=== PATIENT | male | born 1970 | race Caucasian/White ===

== ENCOUNTER → 2020-09-11 14:13 | Outpatient (CLI) | payer OTHER, MEDICAID, SELFPAY ==
[2020-09-11 15:11] LABS: Hemoglobin A1C% w Est Avg Glu 5.6 % (4.0-6.0)
[2020-09-11 15:18] LABS: Alanine Aminotransferase 38 IU/L (<50); Albumin 4.6 g/dL (3.5-5.0); Albumin Globulin Ratio 1.7 (1.0-2.8); Alkaline Phosphatase 67 U/L (38-126); Aspartate Aminotransferase 32 IU/L (17-59); Bilirubin Total 2.1 mg/dL (0.2-1.3); Blood Urea Nitrogen 10 mg/dL (9-20); Calcium 9.6 mg/dL (8.4-10.2); Carbon Dioxide 28 mmol/L (22-32); Chloride 103 mmol/L (98-107); Cholesterol 250 mg/dL (140-199); Estimated Glomerular Filt Rate > 60.0 mL/min (>60); Globulin 2.7 g/dL (1.7-4.1); Glucose 86 mg/dL (70-100); HDL Cholesterol 42 mg/dL (40-60); HEMOLYSIS < 15 (0-50); LDL Cholesterol Calculated 140 mg/dL (<100); Potassium 4.2 mmol/L (3.4-5.1); Sodium 137 mmol/L (137-145); Total Protein 7.3 g/dL (6.3-8.2); Triglycerides 341 mg/dL (35-150); Uric Acid 8.7 mg/dL (3.5-8.5)
[2020-09-11 15:23] LABS: Rheumatoid Factor < 8.6 IU/mL (<12.0)
[2020-09-11 16:01] LABS: Erythrocyte Sedimentation Rate 1 MM/HR (0-15)
== END ==
PROVIDERS: PCP Family Medicine; Referring Provider Family Medicine; Visit Provider Family Medicine
DX: Z00.00 Encounter for general adult medical examination without abnormal findings (principal); M10.9 Gout, unspecified; R79.89 Other specified abnormal findings of blood chemistry
CPT/HCPCS: 36415; 80053; 80061; 83036; 84550; 85651; 86430

== ENCOUNTER 2020-11-08 19:21 | Emergency (ER) | payer OTHER, MEDICAID, SELFPAY ==
[2020-11-08 19:36] VITALS: BP 157/88; PULSE 71; RESP 15; TEMP 36.7; O2SAT 99; BMI 35.6
[2020-11-08 20:10] VITALS: BP 130/80; PULSE 68; TEMP 36.7; O2SAT 98
--- NOTE | 2020-11-08 20:51 | ED_ITS ---
HPI - Extremity Problem General Chief complaint: Extremity Problem,Nontraumatic Stated complaint: new meds, face is red, fatigue Time Seen by Provider: 11/08/20 19:45 Source: patient Mode of arrival: Ambulatory Limitations: no limitations History of Present Illness HPI Narrative: Patient is a 50-year-old male who is here evaluation for multiple symptoms. He states that he you was just recently started on colchicine and indomethacin for gout flare in his left big toe. Several months ago he was started on allopurinol. He states that the indomethacin is causing him to become somewhat lightheaded so he stopped taking it. He states the colchicine is causing diarrhea. He states that the gout flare has not improved. He is also here because of feeling very tired and being red in the face. At the same time that he was started on allopurinol he was also started on lisinopril and tamsulosin. He does take his blood pressure at home. He states that the blood pressure cuff that he is he is in rates his systolic blood pressure in the high 130s and is reading it as ?high? Related Data Home Medications Medication Instructions Recorded Confirmed Lactobacillus rhamnosus GG PO 09/11/20 10/09/20 cholecalciferol (vitamin D3) PO 09/11/20 10/09/20 cranberry fruit concentrate PO 09/11/20 10/09/20 ibuprofen PO 09/11/20 10/09/20 omega-3 fatty acids PO 09/11/20 10/09/20 vitamins A,C,L-itzi-ifdwrn PO 09/11/20 10/09/20 Previous Rx's Medication Instructions Recorded tamsulosin 0.4 mg capsule 0.4 mg PO BEDTIME #30 cap 09/11/20 allopurinol 300 mg tablet 300 mg PO DAILY #90 tab 10/09/20 colchicine 0.6 mg capsule 0.6 mg PO .COMPLEX #30 cap 10/09/20 indomethacin 50 mg capsule 50 mg PO TID #30 cap 10/09/20 lisinopril 10 mg tablet 10 mg PO DAILY #90 tab 10/09/20 3 ml syringe #12 ea 10/13/20 23 gauge 1.5 inch needle #12 ea 10/13/20 testosterone cypionate 200 mg/mL 200 mg IM QWEEK #10 ml 10/16/20 intramuscular oil ibuprofen 600 mg PO TID PRN #90 tab 11/08/20 Allergies Allergy/AdvReac Type Severity Reaction Status Date / Time Penicillins Allergy Intermediate Rash Verified 11/08/20 19:36 Review of Systems Constitutional Constitutional: Reports fatigue, Denies fever(s), Denies headache(s), Reports lethargy and Reports malaise Eyes Eyes: Denies change in vision ENT Ears, Nose, Mouth, and Throat: Denies headache(s) Cardiovascular Cardiovascular: Denies chest pain and Denies dyspnea Respiratory Respiratory: Denies dyspnea Gastrointestinal Gastrointestinal: Reports diarrhea, Denies nausea and Denies vomiting Genitourinary Genitourinary: Denies dysuria Genitourinary: Denies dysuria Musculoskeletal Comments: Left big toe pain Integumentary/Breasts Skin/Breast: Denies lesions and Denies rash Neurologic Neurologic: Denies behavioral changes, Denies confusion and Denies headache(s) Psychiatric Psychiatric: Denies behavioral changes and Denies confusion Endocrine Endocrine: Reports fatigue Hematologic/Lymphatic On Anticoagulants: No Allergic/Immunologic Allergic/Immunologic: Denies urticaria Patient History Medical History Borderline hypertension BPH (benign prostatic hyperplasia) Chicken pox COVID-19 (~2019) [place] syndrome Gout (~2019) Herpes Hyperbilirubinemia Hypertension Low testosterone in male Pneumonia Preventative health care Testicular cancer Surgical History (Updated 10/07/20 @ 22:10 by Albina Ramirez) Anesthesia History of testicular surgery (~2002) Family History Mother Diabetes mellitus Oxygen deficiency History of heart disease Hypertension Hyperlipidemia Mental health problem Social History Smoking Status: Never smoker alcohol intake: current (2-4 beers per night ) substance use type: former substance user (crack cocaine ), marijuana (1-2 puffs, occasional edibles. ) and crack/cocaine (former 05/2020 ) Smoking Status: Never smoker alcohol intake frequency: other Substance Use Type: marijuana Exam Initial Vital Signs Initial Vital Signs: Vital Signs Temperature 98.0 F 11/08/20 19:36 Pulse Rate 71 11/08/20 19:36 Respiratory Rate 15 11/08/20 19:36 Blood Pressure 157/88 H 11/08/20 19:36 Pulse Oximetry 99 11/08/20 19:36 Const General: cooperative and comfortable Limitations: mental status not altered HENMT Head: normal to inspection and normocephalic Neck Neck: trachea midline Thyroid: thyroid normal Lymphatic: No lymphadenopathy Resp Effort & Inspection: normal respiratory effort Auscultation: clear to auscultation bilaterally Cardio Rate: regular rate Rhythm: regular rhythm GI Inspection: non-distended Palpation: soft Skin Lesions: no lesions Neuro General: patient alert, patient awake and patient oriented x3 Cognition: normal cognition Speech: speech normal Extrem Other: Minimal swelling left big toe Psych Appearance: grossly normal and well kempt Course Vital Signs Vital signs: Vital Signs - 8 hr 11/08/20 19:36 11/08/20 20:10 Temperature 98.0 F 98.1 F Pulse Rate 71 68 Respiratory Rate 15 Blood Pressure 157/88 H 130/80 Pulse Oximetry 99 98 MDM - Extremity (Nontraumatic) MDM Narrative Medical decision making narrative: The gout inflammation in his left big toe appears well. There is only minimal redness and swelling however he is still having quite a bit of discomfort. The diarrhea that he is having is most likely the colchicine. I did discuss this with him and also informed him that it may take longer than just 24 hours for his pain to be improved with the colchicine. He also has multiple other vague complaints. I suspect that some of his symptoms are related to his body adjusting to a new lower blood pressures since he was just recently started on blood pressure medications. Low suspicion for CVA. Low suspicion for TIA. He does have somewhat of a red face but does not have any signs of lymphadenopathy in his neck or other signs of venous congestion. Feel we can hold on radiologic studies for now. Tried to provide reassurance to the patient and his . He has had a alcohol history but states that he has not drank in 5 days. He has no signs of withdrawal. Will have the patient continue his medications. We did discuss how he should be taking his blood pressure at home. Will have him follow-up with his primary doctor. He is given return precautions. He expressed understanding and agreement Discharge Plan Departure Patient Disposition: Home Clinical Impression: Gout, Hypertension Instructions: Essential Hypertension, DI for Gout Activity Restrictions/Additional Instructions: I recommend that you continue all of your medications as directed. Take her blood pressure at home like we discussed. Keep all of your scheduled medical appointments. Return to the emergency department for any new or worsening symptoms Prescriptions: New ibuprofen 600 mg tablet 600 mg PO TID PRN (Reason: pain) Qty: 90 RF: 0 No Action (DME) 3 ml syringe See Rx Instructions .Route .MEDSUPPLY Qty: 12 RF: 0 (DME) 23 gauge 1.5 inch needle See Rx Instructions .Route .MEDSUPPLY Qty: 12 RF: 0 testosterone cypionate [Depo-Testosterone] 200 mg/mL oil 200 mg IM QWEEK Qty: 10 RF: 0 cholecalciferol (vitamin D3) PO RF: 0 ibuprofen PO RF: 0 vitamins A,C,I-vxfs-swpbji PO RF: 0 cranberry fruit concentrate PO RF: 0 omega-3 fatty acids PO RF: 0 Lactobacillus rhamnosus GG PO RF: 0 tamsulosin 0.4 mg capsule 0.4 mg PO BEDTIME Qty: 30 RF: 2 allopurinol 300 mg tablet 300 mg PO DAILY Qty: 90 RF: 1 colchicine 0.6 mg capsule 0.6 mg PO .COMPLEX Qty: 30 RF: 2 indomethacin 50 mg capsule 50 mg PO TID Qty: 30 RF: 2 lisinopril 10 mg tablet 10 mg PO DAILY Qty: 90 RF: 1 Referrals: Devan Crawley, [Primary Care Provider] -
== END 2020-11-08 20:59 | disposition home or self-care (01) ==
PROVIDERS: Emergency Provider Emergency Medicine; PCP Family Medicine
DX: M10.9 Gout, unspecified (principal); I10 Essential (primary) hypertension
CPT/HCPCS: 99281

== ENCOUNTER → 2020-12-21 10:27 | Outpatient (CLI) | payer OTHER, MEDICAID, SELFPAY ==
[2020-12-21 12:22] LABS: Alanine Aminotransferase 31 IU/L (<50); Albumin 4.6 g/dL (3.5-5.0); Albumin Globulin Ratio 1.6 (1.0-2.8); Alkaline Phosphatase 57 U/L (38-126); Aspartate Aminotransferase 29 IU/L (17-59); BUN Creatinine Ratio 10.1 (6-22); Bilirubin Total 1.8 mg/dL (0.2-1.3); Blood Urea Nitrogen 8 mg/dL (9-20); Calcium 9.9 mg/dL (8.4-10.2); Carbon Dioxide 25 mmol/L (22-32); Chloride 103 mmol/L (98-107); Estimated Glomerular Filt Rate > 60.0 mL/min (>60); Globulin 2.8 g/dL (1.7-4.1); Glucose 104 mg/dL (70-100); HEMOLYSIS < 15 (0-50); Potassium 4.1 mmol/L (3.4-5.1); Sodium 137 mmol/L (137-145); Total Protein 7.4 g/dL (6.3-8.2)
[2020-12-30 17:07] LABS: Estrogen 246 pg/mL (40-115)
[2021-01-05 07:48] LABS: Percent Free Testosterone 4.43 % (1.50-4.20); Testosterone Free 49.05 ng/dL (5.00-21.00); Testosterone Total 1107.3 ng/dL (264.0-916.0)
== END ==
PROVIDERS: PCP Family Medicine; Referring Provider Family Medicine; Visit Provider Family Medicine
DX: E80.6 Other disorders of bilirubin metabolism (principal); I10 Essential (primary) hypertension; R79.89 Other specified abnormal findings of blood chemistry
CPT/HCPCS: 36415; 80053; 82248; 82672; 84402; 84403

== ENCOUNTER → 2021-03-02 11:19 | Outpatient (CLI) | payer OTHER, MEDICAID, SELFPAY ==
[2021-03-02 12:19] LABS: Alanine Aminotransferase 56 IU/L (<50); Albumin 4.6 g/dL (3.5-5.0); Albumin Globulin Ratio 1.8 (1.0-2.8); Alkaline Phosphatase 72 U/L (38-126); Aspartate Aminotransferase 43 IU/L (17-59); BUN Creatinine Ratio 15.1 (6-22); Bilirubin Total 1.7 mg/dL (0.2-1.3); Blood Urea Nitrogen 13 mg/dL (9-20); Calcium 9.8 mg/dL (8.4-10.2); Carbon Dioxide 26 mmol/L (22-32); Chloride 102 mmol/L (98-107); Estimated Glomerular Filt Rate > 60.0 mL/min (>60); Globulin 2.6 g/dL (1.7-4.1); Glucose 136 mg/dL (70-100); HEMOLYSIS < 15 (0-50); Potassium 4.5 mmol/L (3.4-5.1); Sodium 138 mmol/L (137-145); Total Protein 7.2 g/dL (6.3-8.2)
[2021-03-10 18:39] LABS: Percent Free Testosterone 5.09 % (1.50-4.20); Testosterone Free 30.41 ng/dL (5.00-21.00); Testosterone Total 597.4 ng/dL (264.0-916.0)
== END ==
PROVIDERS: PCP Family Medicine; Referring Provider Family Medicine; Visit Provider Family Medicine
DX: R79.89 Other specified abnormal findings of blood chemistry (principal)
CPT/HCPCS: 36415; 80053; 84402; 84403

== ENCOUNTER 2021-03-27 09:39 | Day surgery (SDC) | payer OTHER, MEDICAID, SELFPAY ==
[2021-03-23 08:23] VITALS: BMI 34.0
[2021-03-27] VITALS (14 sets, daily range): BP systolic 93–145; BP diastolic 48–97; PULSE 61–81; RESP 11–20; TEMP 36.2–36.7; O2SAT 94–100; BMI 34.0
[2021-03-27 10:07] LABS: COVID19 -Nasal RAPID Negative (Negative)
[2021-03-27] MEDS: ACETAMINOPHEN 325 MG TABLET 975 MG PO (10:35)
[2021-03-27] MEDS: LACTATED RINGERS 1,000 ML 42 ML IV (10:35)
--- NOTE | 2021-03-27 11:13 | PM.PREOP ---
Pre-operative Note Interval Note History & Physical reviewed/Exam performed by Physician: Yes Changes to H&P: No
[2021-03-27] MEDS: CLINDAMYCIN 900 MG/50 ML PIGGYBACK 50 MG IV (11:54)
--- NOTE | 2021-03-27 12:09 | SUR.OPER ---
Supine on padded OR bed, head on pillow, arms secured on padded arm boards at <90 degrees abduction, legs uncrossed, safety belt at thigh, tape over blanket over lower legs.
[2021-03-27] MEDS: BUPIVACAINE 0.25% (PF) VIAL 30 ML INJ (12:17)
[2021-03-27] MEDS: fentaNYL 100 MCG/2 ML INJ IV ×3 (13:46→14:28)
[2021-03-27] MEDS: HYDROMORPHONE 2 MG INJ IV ×7 (13:52→14:27)
[2021-03-27] MEDS: OXYCODONE IR 5 MG TABLET PO ×2 (14:17→14:52)
--- NOTE | 2021-03-27 15:03 | PM.OP.1 ---
Operative Date/Time/Diagnoses Date of procedure: 03/27/21 Time of procedure: 17:59 Pre-op diagnosis: Bilateral inguinal hernia Post-op diagnosis: same Procedure & Clinicians Procedure: Open bilateral inguinal hernia repair with mesh Same procedure as scheduled: Yes Indications: Bilateral inguinal hernia Surgeon: Daren Perez Anesthesia Type: General Operative Notes Findings: Bilateral direct floor defect. No indirect hernia on either side Specimen(s): none sent Estimated Blood Loss (mL): 30 Procedure in detail: The patient was placed supine on the table and bilateral lower extremity compression devices were applied. Anesthesia was induced they were intubated with an LMA and received 2g of Ancef. A time-out was performed. They were prepped and draped in sterile fashion. The right external inguinal ring and the anterior superior iliac crest were identified and marked. 1 finger breath above the inguinal ligament the skin was infiltrated with 0.25% bupivacaine. The skin incision was made here and the subcutaneous tissues were divided with electrocautery exposing the external oblique aponeurosis which was then opened along the direction of its fibers. The tissue planes on the right side were densely adherent from his previous right-sided orchiectomy. There were no cord structures and once the canal was fully exposed there was a moderte size direct floor defect. I opened the floor of the canal were it was particularly attenuated. The hernia was reduced back into the abdomen. A plug of mesh was placed into the floor defect and secured with eithbond suture and the floor was reappoximated. I selected a 7x 15 cm lightweight Pro Loop hernia mesh. The inferior medial aspect of the mesh was anchored to insertion of the rectus muscle to the pubic tubercle such that there was approximately 2 cm of tubercle overlap with Ethibond and then was run continuously along the inferior edge of the mesh to the shelving edge of the inguinal ligament. Interrupted 3 0 Vicryl suture was used to anchor the superior aspect of the mesh to the conjoined tendon in several places. The tails of the mesh were then tucked under the external oblique aponeurosis. The repair was checked for hemostasis. The wound was irrigated with sterile saline. The external oblique aponeurosis was reapproximated in a running fashion using 3 0 Vicryl. The subcutaneous tissues were reapproximated with 3 0 Vicryl skin closed with 4 0 Monocryl followed by the application of Dermabond. The left external inguinal ring and the anterior superior iliac crest were identified and marked. 1 finger breath above the inguinal ligament the skin was infiltrated with 0.25% bupivacaine. The skin incision was made here and the subcutaneous tissues were divided with electrocautery exposing the external oblique aponeurosis which was then opened along the direction of its fibers. Using blunt dissection the internal oblique aporneurosis was from the external oblique upper leaflet to identify the iliohypogastric nerve. Using a kittner the cord was carefully dissected away from the inguinal canal adjacent to the pubic tubercle. The cord including the vas deferens, testicular bloody supply, ilioguinal and genital nerve were encircled with a [place] drain. A direct floor defect was identified similar to the right side. A plug of mesh was placed into the direct defect the floor was reapproximated over it. The cremasteric fibers surrounding the cord were divided using electrocautery adjacent to the internal ring.. The vas deferens and the testicular vessels were preserved and protected. There was no indirect hernia. I selected a 7x 15 cm lightweight Pro Loop hernia mesh. The inferior medial aspect of the mesh was anchored to insertion of the rectus muscle to the pubic tubercle such that there was approximately 2 cm of tubercle overlap with Ethibond and then was run continuously along the inferior edge of the mesh to the shelving edge of the inguinal ligament. Interrupted 3 0 Vicryl suture was used to anchor the superior aspect of the mesh to the conjoined tendon in several places. The tails were then reapproximated loosely around the spermatic cord. The tails of the mesh were then tucked under the external oblique aponeurosis. The repair was checked for hemostasis. The wound was irrigated with sterile saline. The external oblique aponeurosis was reapproximated in a running fashion using 3 0 Vicryl. The subcutaneous tissues were reapproximated with 3 0 Vicryl skin closed with 4 0 Monocryl followed by the application of Dermabond. At the end of the operation I ensured that both testicles were within the scrotum. The sponge instrument count at the end operation was correct. The patient emerged from anesthesia was extubated and transferred to the postoperative care unit in stable condition. A total of 30 ml of of 0.25% bupivicaine was used to infiltrate the skin. At the end of the operation I ensured that the left testicle was within the scrotum. The sponge instrument count at the end operation was correct. The patient emerged from anesthesia was extubated and transferred to the postoperative care unit in stable condition. A total of 30 ml of of 0.25% bupivicaine was used to infiltrate the skin.
--- NOTE | 2021-03-27 15:44 | SUR.PHASEII ---
Pt ready to go, states pain tolerable, no nausea. Assisted to dress, pt left unit in stable condition.
--- NOTE | 2021-03-27 16:38 | SUR.PHASEI ---
1500 Pt transferred to [facility]PD via stretcher. SBAR report at bedside to Kaye CALERO. Pt alert, oriented, tolerating fluids, apple sauce.
== END 2021-03-27 15:35 | disposition home or self-care (01) ==
PROVIDERS: PCP Family Medicine; Referring Provider Surgery; Visit Provider Surgery
PROC: (CPT 49505; principal; 2021-03-27 11:15)
DX: K40.20 Bilateral inguinal hernia, without obstruction or gangrene, not specified as recurrent (principal); I10 Essential (primary) hypertension; E66.9 Obesity, unspecified; E78.5 Hyperlipidemia, unspecified; Z68.38 Body mass index [BMI] 38.0-38.9, adult
CPT/HCPCS: 49505; 82962; 87635; C1781; J1100; J1170; J1885; J2250; J2405; J2704; J3010

== ENCOUNTER 2021-06-09 14:58 | Emergency (ER) | payer OTHER, MEDICAID, SELFPAY ==
[2021-06-09 15:18] VITALS: BP 132/89; PULSE 75; RESP 18; TEMP 36.3; O2SAT 98; BMI 33.3
--- NOTE | 2021-06-09 15:42 | DI.CT.S_ITS ---
PROCEDURE: CT ABDOMEN PELVIS W CON INDICATIONS: Bilateral inguinal pain, s/p hernia repair TECHNIQUE: After the administration of IV contrast, axial sections were acquired from the lung bases to the pubic symphysis. Coronal and sagittal reformats were performed. For radiation dose reduction, the following was used: automated exposure control, adjustment of mA and/or kV according to patient size. COMPARISON: [facility], CT, CT KUB, 07/16/2020, 22:56. FINDINGS: Image quality: Excellent. Lung bases: Unremarkable. Heart: No significant findings. ABDOMEN: Liver: Diffuse fatty liver infiltration is noted. No focal liver lesions are seen. Gallbladder: The gallbladder is largely collapsed at the time of this study. Biliary ducts: Unremarkable. Pancreas: Unremarkable. Spleen: The spleen is mildly enlarged, measuring 13.6 cm AP. Adrenal Glands: Unremarkable. Kidneys and Ureters: There is a 1 mm nonobstructing left-sided kidney stone. The kidneys demonstrate normal size and demonstrate symmetric enhancement. No hydronephrosis is seen. Incidental note is made of a circumaortic left renal vein. Stomach and Bowel: Stomach, small bowel loops, and colon are unremarkable. A normal appendix is incidentally noted. Peritoneum: No abnormal intraperitoneal fluid. No free air. Ventral Wall: No hernia. Abdominal Nodes: No retroperitoneal or mesenteric adenopathy by size criteria. Vessels: Aorta and inferior vena cava are normal in size. PELVIS: Pelvic Organs: Unremarkable. Bladder: Unremarkable. Pelvic Nodes: No enlarged lymph nodes. Miscellaneous: In this patient with this given history, scrutiny is given to the groin on both sides. On the right, there is mild inflammatory change seen within the postoperative region. The right-sided spermatic cord and vessels have been removed. However, no drainable abscess can be seen. On the left, there is a mild fat containing inguinal hernia. Bones: Focal lucency can be seen within the vertebral bodies, most notably within L1 and L2. These are similar to the prior examination. The lesion at L2 demonstrates vertical trabeculations. Mild dextroconvex scoliotic curvature is seen. IMPRESSION: Right orchiectomy, with mild inflammatory change seen within the groin at the postoperative region. No drainable abscess can be seen. Mild fat containing left inguinal hernia. Lucent lesions seen within vertebral bodies. These are stable since the prior and are most likely related to incidental vertebral body hemangiomas. Attention should be paid to these foci on any future follow-up studies. Incidental note is made of: Fatty liver infiltration Mild splenomegaly 1 mm nonobstructing left-sided kidney stone Circumaortic left renal vein Mild dextroconvex scoliotic curvature Normal appendix Dictated by: Shiv Bone M.D. on 06/09/2021 at 15:12 Approved by: Shiv Bone M.D. on 06/09/2021 at 15:17
--- NOTE | 2021-06-09 15:43 | ED_ITS ---
HPI - Abdominal Pain <Shanta Leung DO - Last Filed: 06/13/21 02:17> General Chief Complaint: Abdominal Pain Stated Complaint: hernia pain, recent surgery Time Seen by Provider: 06/09/21 15:21 Source: patient Mode of arrival: Ambulatory Limitations: no limitations History of Present Illness HPI narrative: Patient is a 50-year-old male with history of hypertension, hyperlipidemia status post bilateral inguinal hernia repair 03/27/2021, presenting today with increased left-sided pain. He has had intermittent pain since the surgery. However today after playing with grandkids and picking them up having increased pain. No changes in bowel or bladder habits. No painful or frequent urination. He denies fever or chills. He took ibuprofen earlier today which did seem to help. Related Data Home Medications Medication Instructions Recorded Confirmed cholecalciferol (vitamin D3) 1 tab PO BEDTIME 09/11/20 05/10/21 vitamins A,C,L-xzif-akoalc PO 09/11/20 05/10/21 [PreserVision AREDS] zinc sulfate PO DAILY 04/09/21 05/10/21 Previous Rx's Medication Instructions Recorded colchicine 0.6 mg capsule 0.6 mg PO .COMPLEX #30 cap 10/09/20 tamsulosin 0.4 mg capsule 0.4 mg PO BEDTIME #90 cap 01/11/21 lisinopril 10 mg tablet 10 mg PO DAILY #90 tab 01/25/21 3 ml syringe #12 ea 03/15/21 needle (disp) 23 gauge 23 gauge x #12 ea 03/15/21 1 (Monoject Hypodermic [place]) testosterone cypionate 200 mg/mL 100 mg (0.5 mL) IM QWEEK #10 ml 03/15/21 intramuscular oil (Depo-Testosterone) acetaminophen 325 mg capsule 650 mg PO QID PRN #30 cap 03/27/21 (Tylenol) allopurinol 300 mg tablet 300 mg PO DAILY #90 tab 04/19/21 ibuprofen 800 mg tablet See Rx Instructions .ROUTE 06/04/21 .COMPLEX #90 tab hydrocodone 5 mg-acetaminophen 325 1 tab PO Q4-6H PRN #14 tab 06/12/21 mg tablet Allergies Allergy/AdvReac Type Severity Reaction Status Date / Time Penicillins Allergy Intermediate Rash Verified 06/09/21 15:18 Patient History <Shanta Leung DO - Last Filed: 06/13/21 02:17> Medical History Borderline hypertension BPH (benign prostatic hyperplasia) Chicken pox COVID-19 (~2019) [place] syndrome Gout (~2019) Herpes History of sepsis Hyperbilirubinemia Hypertension Inguinal hernia Low testosterone in male Pneumonia Preventative health care Testicular cancer Surgical History Anesthesia History of orchiectomy (2003) History of testicular surgery (~2002) Family History Mother Diabetes mellitus Oxygen deficiency History of heart disease Hypertension Hyperlipidemia Mental health problem Social History household members: significant other and family Smoking Status: Never smoker alcohol intake: current substance use type: former substance user (crack cocaine ), marijuana (1-2 puffs, occasional edibles. ) and crack/cocaine (former 05/2020 ) Smoking Status: Never smoker alcohol intake frequency: 3 or more drinks per day Substance Use Type: marijuana Exam <Shanta Leung DO - Last Filed: 06/13/21 02:17> Initial Vital Signs Initial Vital Signs: Vital Signs Temperature 97.4 F L 06/09/21 15:18 Pulse Rate 75 06/09/21 15:18 Respiratory Rate 18 06/09/21 15:18 Blood Pressure 132/89 06/09/21 15:18 Pulse Oximetry 98 06/09/21 15:18 GENERAL: Alert well-appearing 50-year-old male and in no acute distress. HEENT: Head atraumatic,EOMI, pupils reactive, face symmetric, moist mucous membr anes CARDIOVASCULAR: Regular rate and rhythm without murmurs, rubs or gallops. RESPIRATORY: Breath sounds equal bilaterally, no wheezes rales or rhonchi. ABDOMEN: Soft, nontender. Normoactive bowel sounds all 4 quadrants. No guarding or rebound. : No CVA tenderness, mild swelling inguinal area significant pain in left inguinal region EXTREMITIES: Normal range of motion, no clubbing or edema. Neurovascularly intact NEUROLOGICAL: Alert and oriented x4.Normal gait and speech. SKIN: Warm, dry, no laceration, no petechiae, no rashes or lesions. <Lexx Tejada MD - Last Filed: 06/09/21 17:04> Initial Vital Signs Initial Vital Signs: Vital Signs Temperature 97.4 F L 06/09/21 15:18 Pulse Rate 75 06/09/21 15:18 Respiratory Rate 18 06/09/21 15:18 Blood Pressure 132/89 06/09/21 15:18 Pulse Oximetry 98 06/09/21 15:18 Course <Shanta Leung DO - Last Filed: 06/13/21 02:17> Orders Ordered: Discontinued Medications Hydrocodone Bitart/Acetaminophen (Hydrocodone/Acet 5/325 Prepack) 1 bottle MISC SEEINSTR ONE Stop: 06/09/21 17:00 Last Admin: 06/09/21 17:09 Dose: 1 bottle Documented by: SEAN Ketorolac Tromethamine (Ketorolac 30 Mg/Ml Vial) 30 mg IV NOW ONE Stop: 06/09/21 15:43 Last Admin: 06/09/21 16:32 Dose: 30 mg Documented by: SEAN Vital Signs Vital signs: Vital Signs - 8 hr 06/09/21 15:18 Temperature 97.4 F L Pulse Rate 75 Respiratory Rate 18 Blood Pressure 132/89 Pulse Oximetry 98 <Lexx Tejada MD - Last Filed: 06/09/21 17:04> Course Course Narrative: 05/2021@16:57. Care was assumed from Dr. Leung at the end of her shift. Her assessment was reviewed. I interviewed and evaluated the patient. Following surgery 2 months ago, he describes having a good 1st month. He is electric pool, he is physically active. He is also quite active with his grandkids. He has been having significant left lower quadrant pain with physical activity over the past month. He has no bulge at the site. He has no nausea, vomiting diarrhea. He has no obvious inflammatory changes. He has mesh in place from the surgery. CT showed a small fat containing left inguinal hernia. He is taking ibuprofen. I will describe limited number of hydrocodone. He is advised to follow-up with Dr. Perez, his surgeon.Amrit VEGA Orders Ordered: Discontinued Medications Hydrocodone Bitart/Acetaminophen (Hydrocodone/Acet 5/325 Prepack) 1 bottle MISC SEEINSTR ONE Stop: 06/09/21 17:00 Last Admin: 06/09/21 17:09 Dose: 1 bottle Documented by: SEAN Ketorolac Tromethamine (Ketorolac 30 Mg/Ml Vial) 30 mg IV NOW ONE Stop: 06/09/21 15:43 Last Admin: 06/09/21 16:32 Dose: 30 mg Documented by: SEAN Vital Signs Vital signs: Vital Signs - 8 hr 06/09/21 15:18 Temperature 97.4 F L Pulse Rate 75 Respiratory Rate 18 Blood Pressure 132/89 Pulse Oximetry 98 MDM - Abdominal Pain <Shanta Leung DO - Last Filed: 06/13/21 02:17> Lab Data Result diagrams: 06/09/21 15:50 06/09/21 15:50 Labs: Lab Results 06/09/21 06/09/21 Range/Units 15:50 15:50 WBC 5.9 (4.5-11.0) X10^3/uL RBC 4.83 (4.5-5.9) X10^6/uL Hgb 15.4 (13.5-17.5) g/dL Hct 43.6 (41-53) % MCV 90.3 (80-100) fL MCH 32.0 (26-34) PG MCHC 35.4 (30-36) % RDW 12.6 (11.6-14.8) % Plt Count 222 (150-400) X10^3/uL Neut % (Auto) 57.1 (50-75) % Lymph % (Auto) 34.6 (25-40) % [place] % (Auto) 6.3 (3-14) % Eos % (Auto) 1.4 L (2-4) % Baso % (Auto) 0.6 (0-2) % Neut # (Auto) 3300 (3059-6387) /uL Lymph # (Auto) 2000 (1997-7684) /uL [place] # (Auto) 400 (0-900) /uL Eos # (Auto) 100 (0-450) /uL Baso # (Auto) 0 (0-100) /uL Sodium 137 (137-145) mmol/L Potassium 4.1 (3.4-5.1) mmol/L Chloride 101 (98-107) mmol/L Carbon Dioxide 25 (22-32) mmol/L BUN 15 (9-20) mg/dL Creatinine 0.84 (0.66-1.25) mg/dL Estimated GFR > 60.0 (>60) mL/min BUN/Creatinine Ratio 17.9 (6-22) Glucose 105 H (70-100) mg/dL Calcium 10.3 H (8.4-10.2) mg/dL Total Bilirubin 1.4 H (0.2-1.3) mg/dL AST 48 (17-59) IU/L ALT 69 H (<50) IU/L Alkaline Phosphatase 73 (38-126) U/L Total Protein 7.6 (6.3-8.2) g/dL Albumin 4.7 (3.5-5.0) g/dL Globulin 2.9 (1.7-4.1) g/dL Albumin/Globulin Ratio 1.6 (1.0-2.8) Lipase 68 (23-300) U/L MDM Narrative Medical decision making narrative: Blood work and CT pending patient signed out to Dr. Tejada for further management. <Lexx Tejada MD - Last Filed: 06/09/21 17:04> Lab Data Labs: Lab Results 06/09/21 06/09/21 Range/Units 15:50 15:50 WBC 5.9 (4.5-11.0) X10^3/uL RBC 4.83 (4.5-5.9) X10^6/uL Hgb 15.4 (13.5-17.5) g/dL Hct 43.6 (41-53) % MCV 90.3 (80-100) fL MCH 32.0 (26-34) PG MCHC 35.4 (30-36) % RDW 12.6 (11.6-14.8) % Plt Count 222 (150-400) X10^3/uL Neut % (Auto) 57.1 (50-75) % Lymph % (Auto) 34.6 (25-40) % [place] % (Auto) 6.3 (3-14) % Eos % (Auto) 1.4 L (2-4) % Baso % (Auto) 0.6 (0-2) % Neut # (Auto) 3300 (7535-3601) /uL Lymph # (Auto) 2000 (3809-6572) /uL [place] # (Auto) 400 (0-900) /uL Eos # (Auto) 100 (0-450) /uL Baso # (Auto) 0 (0-100) /uL Sodium 137 (137-145) mmol/L Potassium 4.1 (3.4-5.1) mmol/L Chloride 101 (98-107) mmol/L Carbon Dioxide 25 (22-32) mmol/L BUN 15 (9-20) mg/dL Creatinine 0.84 (0.66-1.25) mg/dL Estimated GFR > 60.0 (>60) mL/min BUN/Creatinine Ratio 17.9 (6-22) Glucose 105 H (70-100) mg/dL Calcium 10.3 H (8.4-10.2) mg/dL Total Bilirubin 1.4 H (0.2-1.3) mg/dL AST 48 (17-59) IU/L ALT 69 H (<50) IU/L Alkaline Phosphatase 73 (38-126) U/L Total Protein 7.6 (6.3-8.2) g/dL Albumin 4.7 (3.5-5.0) g/dL Globulin 2.9 (1.7-4.1) g/dL Albumin/Globulin Ratio 1.6 (1.0-2.8) Lipase 68 (23-300) U/L Imaging Data CT scan - abdomen/pelvis: Radiologist's Impression: Launch?[address] [address] [address] Scan Report Signed Patient: Alessandro Madrigal MR#: [id number] : 1970 Acct:[id number] Age/Sex: 50 / M Date of Service: 06/09/21 Loc: ED Accession Number: [id number] ?? Procedure: CT abdomen pelvis w con Ordering Provider: Shanta Leung D.O. PROCEDURE:? CT ABDOMEN PELVIS W CON ? INDICATIONS:? Bilateral inguinal pain, s/p hernia repair ? TECHNIQUE:? After the administration of IV contrast, axial sections were acquired from the lung bases to the pubic symphysis.? Coronal and sagittal reformats were performed.? For radiation dose reduction, the following was used:? automated exposure control, adjustment of mA and/or kV according to patient size. ? COMPARISON:? [facility], CT, CT KUB, 07/16/2020, 22:56. ? FINDINGS:? Image quality:? Excellent.? ? Lung bases:? Unremarkable.? ? Heart:? No significant findings. ? ? ABDOMEN: Liver: Diffuse fatty liver infiltration is noted.? No focal liver lesions are seen. Gallbladder:? The gallbladder is largely collapsed at the time of this study.? ? ? Biliary ducts:? Unremarkable.? ? Pancreas:? Unremarkable.? ? Spleen:? The spleen is mildly enlarged, measuring 13.6 cm AP. Adrenal Glands:? Unremarkable.? ? Kidneys and Ureters:? There is a 1 mm nonobstructing left-sided kidney stone.? The kidneys demonstrate normal size and demonstrate symmetric enhancement.? No hydronephrosis is seen. Incidental note is made of a circumaortic left renal vein.? ? Stomach and Bowel:? Stomach, small bowel loops, and colon are unremarkable.? A normal appendix is incidentally noted.? Peritoneum:? No abnormal intraperitoneal fluid.? No free air.? ? Ventral Wall: ? No hernia.? Abdominal Nodes:? No retroperitoneal or mesenteric adenopathy by size criteria.? Vessels:? Aorta and inferior vena cava are normal in size.? ? PELVIS: Pelvic Organs:? Unremarkable.? ? Bladder:? Unremarkable.? ? Pelvic Nodes: No enlarged lymph nodes.? Miscellaneous: In this patient with this given history, scrutiny is given to the groin on both sides.? On the right, there is mild inflammatory change seen within the postoperative region.? The right-sided spermatic cord and vessels have been removed.? However, no drainable abscess can be seen.? On the left, there is a mild fat containing inguinal hernia. ? Bones:? Focal lucency can be seen within the vertebral bodies, most notably wit hin L1 and L2.? These are similar to the prior examination.? The lesion at L2 demonstrates vertical trabeculations.? Mild dextroconvex scoliotic curvature is seen.? ? ? IMPRESSION:? ? Right orchiectomy, with mild inflammatory change seen within the groin at the postoperative region.? No drainable abscess can be seen. ? Mild fat containing left inguinal hernia. ? Lucent lesions seen within vertebral bodies.? These are stable since the prior and are most likely related to incidental vertebral body hemangiomas.? Attention should be paid to these foci on any future follow-up studies. ? ? Incidental note is made of: Fatty liver infiltration Mild splenomegaly 1 mm nonobstructing left-sided kidney stone Circumaortic left renal vein Mild dextroconvex scoliotic curvature Normal appendix ? ? ? Dictated by: Shiv Bone M.D. on 06/09/2021 at 15:12 ? ? Approved by: Shiv Bone M.D. on 06/09/2021 at 15:17?? Discharge Plan Departure Patient Disposition: Home Clinical Impression: Hernia, inguinal, left Instructions: Groin Hernia -- Adult Activity Restrictions/Additional Instructions: Ibuprofen every 6-8 hours as needed for pain. Limit heavy lifting, obviously you are aware. Hydrocodone every 6 hours as the for added pain control. Contact Dr. Perez for repeat evaluation Prescriptions: No Action tamsulosin 0.4 mg capsule 0.4 mg PO BEDTIME Qty: 90 2RF lisinopril 10 mg tablet 10 mg PO DAILY Qty: 90 1RF testosterone cypionate [Depo-Testosterone] 200 mg/mL oil 100 mg IM QWEEK Qty: 10 0RF (DME) needle (disp) 23 gauge [Monoject Hypodermic [place]] 23 gauge x 1 needle See Rx Instructions .ROUTE .MEDSUPPLY Qty: 12 2RF Rx Instructions: Use to inject Testosteron IM once weekly (DME) 3 ml syringe See Rx Instructions .Route .MEDSUPPLY Qty: 12 0RF Rx Instructions: Use to inject testosterone IM weekly. allopurinol 300 mg tablet 300 mg PO DAILY Qty: 90 1RF ibuprofen 800 mg tablet See Rx Instructions .ROUTE .COMPLEX Qty: 90 0RF Dose Instruction: TAKE 1 TABLET BY MOUTH THREE TIMES DAILY NEEDED FOR PAIN Rx Instructions: TAKE 1 TABLET BY MOUTH THREE TIMES DAILY NEEDED FOR PAIN cholecalciferol (vitamin D3) 1 tab PO BEDTIME 0RF vitamins A,C,T-hoxx-npnxoj PO 0RF colchicine 0.6 mg capsule 0.6 mg PO .COMPLEX Qty: 30 2RF Rx Instructions: 0.6 mg PO 1 hour as needed gout; One p.o. Q hour max 6 per day as needed gout attack zinc sulfate PO DAILY 0RF hydrocodone-acetaminophen 5-325 mg tablet 1 tab PO Q4-6H PRN (Reason: pain) Qty: 14 0RF acetaminophen [Tylenol] 325 mg capsule 650 mg PO QID PRN (Reason: pain) Qty: 30 0RF Referrals: Devan Crawley DO [Primary Care Provider] -
[2021-06-09 15:57] LABS: Add Manual Diff / Slide Review NO; Basophils Absolute Auto 0 /uL (0-100); Basophils Percent Auto 0.6 % (0-2); Eosinophils Absolute Auto 100 /uL (0-450); Eosinophils Percent Auto 1.4 % (2-4); Hematocrit 43.6 % (41-53); Hemoglobin 15.4 g/dL (13.5-17.5); Lymphocytes Absolute Auto 2000 /uL (1100-4500); Lymphocytes Percent Auto 34.6 % (25-40); Mean Corpuscular HGB Conc 35.4 % (30-36); Mean Corpuscular Volume 90.3 fL (80-100); Monocytes Absolute Auto 400 /uL (0-900); Monocytes Percent Auto 6.3 % (3-14); Neutrophils Absolute Auto 3300 /uL (1500-7000); Neutrophils Percent Auto 57.1 % (50-75); Platelet Count 222 X10^3/uL (150-400); Red Blood Cell Count 4.83 X10^6/uL (4.5-5.9); Red Cell Distribution Width 12.6 % (11.6-14.8); White Blood Cell Count 5.9 X10^3/uL (4.5-11.0)
[2021-06-09 16:06] LABS: Alanine Aminotransferase 69 IU/L (<50); Albumin 4.7 g/dL (3.5-5.0); Albumin Globulin Ratio 1.6 (1.0-2.8); Alkaline Phosphatase 73 U/L (38-126); Aspartate Aminotransferase 48 IU/L (17-59); BUN Creatinine Ratio 17.9 (6-22); Bilirubin Total 1.4 mg/dL (0.2-1.3); Blood Urea Nitrogen 15 mg/dL (9-20); Calcium 10.3 mg/dL (8.4-10.2); Carbon Dioxide 25 mmol/L (22-32); Chloride 101 mmol/L (98-107); Estimated Glomerular Filt Rate > 60.0 mL/min (>60); Globulin 2.9 g/dL (1.7-4.1); Glucose 105 mg/dL (70-100); HEMOLYSIS < 15 (0-50); Lipase 68 U/L (23-300); Potassium 4.1 mmol/L (3.4-5.1); Sodium 137 mmol/L (137-145); Total Protein 7.6 g/dL (6.3-8.2)
[2021-06-09] MEDS: KETOROLAC 30 MG/ML VIAL IV (16:32)
[2021-06-09] MEDS: HYDROCODONE/ACET 5/325 PREPACK 1 BOTTLE MISC (17:09)
[2021-06-09 17:12] VITALS: BP 146/90; PULSE 71; RESP 15; O2SAT 99
== END 2021-06-09 17:13 | disposition home or self-care (01) ==
PROVIDERS: Emergency Provider Emergency Medicine; PCP Family Medicine; Referring Provider Surgery
DX: K40.21 Bilateral inguinal hernia, without obstruction or gangrene, recurrent (principal)
CPT/HCPCS: 36415; 74177; 80053; 83690; 85025; 96374; 99284; J1885

== ENCOUNTER → 2021-07-10 10:53 | Outpatient (CLI) | payer OTHER, MEDICAID, SELFPAY ==
[2021-07-10 12:35] LABS: COVID19 -Nasal RAPID POSITIVE (Negative)
== END ==
PROVIDERS: PCP Family Medicine; Referring Provider Nurse Practitioner Family; Visit Provider Nurse Practitioner Family
DX: Z20.822 Contact with and (suspected) exposure to COVID-19 (principal)
CPT/HCPCS: 87635

== ENCOUNTER → 2021-09-11 09:48 | Outpatient (CLI) | payer OTHER, MEDICAID, SELFPAY ==
[2021-09-11 10:50] LABS: Add Manual Diff / Slide Review NO; Basophils Absolute Auto 0 /uL (0-100); Basophils Percent Auto 0.4 % (0-2); Eosinophils Absolute Auto 100 /uL (0-450); Eosinophils Percent Auto 1.6 % (2-4); Hematocrit 46.8 % (41-53); Hemoglobin 16.1 g/dL (13.5-17.5); Lymphocytes Absolute Auto 2000 /uL (1100-4500); Mean Corpuscular HGB Conc 34.4 % (30-36); Mean Corpuscular Hemoglobin 31.6 PG (26-34); Mean Corpuscular Volume 91.9 fL (80-100); Monocytes Absolute Auto 300 /uL (0-900); Monocytes Percent Auto 6.5 % (3-14); Neutrophils Absolute Auto 2400 /uL (1500-7000); Neutrophils Percent Auto 49.5 % (50-75); Platelet Count 242 X10^3/uL (150-400); Red Blood Cell Count 5.09 X10^6/uL (4.5-5.9); White Blood Cell Count 4.9 X10^3/uL (4.5-11.0)
[2021-09-11 11:34] LABS: Prostate Specific Antigen Scrn 1.06 ng/mL (0.1-4.0)
[2021-09-14 13:00] LABS: Estrogen 70 pg/mL (56-213)
[2021-09-16 08:36] LABS: Percent Free Testosterone 3.01 % (1.50-4.20); Testosterone Free 10.22 ng/dL (5.00-21.00); Testosterone Total 339.7 ng/dL (264.0-916.0)
== END ==
PROVIDERS: PCP Family Medicine; Referring Provider Family Medicine; Visit Provider Family Medicine
DX: K40.91 Unilateral inguinal hernia, without obstruction or gangrene, recurrent (principal); N20.0 Calculus of kidney; I10 Essential (primary) hypertension; R79.89 Other specified abnormal findings of blood chemistry
CPT/HCPCS: 36415; 82672; 84402; 84403; 85025; G0103

== ENCOUNTER → 2022-02-14 11:04 | Outpatient (CLI) | payer OTHER, MEDICAID, SELFPAY ==
[2022-02-14 12:35] LABS: Add Manual Diff / Slide Review NO; Basophils Absolute Auto 0 /uL (0-100); Basophils Percent Auto 0.6 % (0-2); Eosinophils Absolute Auto 100 /uL (0-450); Eosinophils Percent Auto 1.8 % (2-4); Hematocrit 44.2 % (41-53); Hemoglobin 15.5 g/dL (13.5-17.5); Lymphocytes Absolute Auto 1800 /uL (1100-4500); Lymphocytes Percent Auto 36.2 % (25-40); Mean Corpuscular HGB Conc 35.2 % (30-36); Mean Corpuscular Hemoglobin 32.1 PG (26-34); Mean Corpuscular Volume 91.1 fL (80-100); Monocytes Absolute Auto 300 /uL (0-900); Neutrophils Absolute Auto 2800 /uL (1500-7000); Neutrophils Percent Auto 55.4 % (50-75); Platelet Count 219 X10^3/uL (150-400); Red Blood Cell Count 4.85 X10^6/uL (4.5-5.9); Red Cell Distribution Width 12.7 % (11.6-14.8)
[2022-02-14 12:47] LABS: Hemoglobin A1C% w Est Avg Glu 5.6 % (4.0-6.0)
[2022-02-14 13:54] LABS: Alanine Aminotransferase 82 IU/L (<50); Albumin 4.5 g/dL (3.5-5.0); Albumin Globulin Ratio 1.9 (1.0-2.8); Alkaline Phosphatase 66 U/L (38-126); Aspartate Aminotransferase 50 IU/L (17-59); BUN Creatinine Ratio 13.6 (6-22); Bilirubin Total 1.4 mg/dL (0.2-1.3); Blood Urea Nitrogen 12 mg/dL (9-20); Calcium 9.3 mg/dL (8.4-10.2); Carbon Dioxide 23 mmol/L (22-32); Chloride 103 mmol/L (98-107); Cholesterol 226 mg/dL (140-199); Estimated Glomerular Filt Rate > 60 mL/min (>60); Globulin 2.4 g/dL (1.7-4.1); Glucose 89 mg/dL (70-100); HDL Cholesterol 55 mg/dL (40-60); HEMOLYSIS < 15 (0-50); LDL Cholesterol Calculated 108 mg/dL (<100); Potassium 4.6 mmol/L (3.4-5.1); Sodium 137 mmol/L (137-145); Total Protein 6.9 g/dL (6.3-8.2); Triglycerides 315 mg/dL (35-150); Uric Acid 6.1 mg/dL (3.5-8.5)
[2022-02-14 14:12] LABS: TSH w/ Reflex to FT4 1.67 uIU/mL (0.47-4.68)
[2022-02-21 17:50] LABS: Percent Free Testosterone 3.61 % (1.50-4.20); Testosterone Free 21.85 ng/dL (5.00-21.00); Testosterone Total 605.4 ng/dL (264.0-916.0)
== END ==
PROVIDERS: PCP Family Medicine; Referring Provider Family Medicine; Visit Provider Family Medicine
DX: I10 Essential (primary) hypertension (principal); M10.9 Gout, unspecified; R73.03 Prediabetes; R79.89 Other specified abnormal findings of blood chemistry
CPT/HCPCS: 36415; 80053; 80061; 83036; 84402; 84403; 84443; 84550; 85025

== ENCOUNTER → 2022-07-19 09:21 | Outpatient (CLI) | payer OTHER, MEDICAID, SELFPAY ==
[2022-07-19 10:30] LABS: Hemoglobin A1C% w Est Avg Glu 5.7 % (4.0-6.0)
[2022-07-19 10:52] LABS: Alanine Aminotransferase 91 IU/L (<50); Albumin 4.5 g/dL (3.5-5.0); Albumin Globulin Ratio 1.5 (1.0-2.8); Alkaline Phosphatase 74 U/L (38-126); Aspartate Aminotransferase 55 IU/L (17-59); BUN Creatinine Ratio 15.7 (6-22); Bilirubin Total 1.1 mg/dL (0.2-1.3); Blood Urea Nitrogen 13 mg/dL (9-20); Calcium 9.5 mg/dL (8.4-10.2); Carbon Dioxide 23 mmol/L (22-32); Chloride 103 mmol/L (98-107); Cholesterol 241 mg/dL (140-199); Estimated Glomerular Filt Rate > 60 mL/min (>60); Glucose 110 mg/dL (70-100); HDL Cholesterol 63 mg/dL (40-60); HEMOLYSIS < 15 (0-50); LDL Cholesterol Calculated 122 mg/dL (<100); Potassium 4.9 mmol/L (3.4-5.1); Sodium 136 mmol/L (137-145); Total Protein 7.5 g/dL (6.3-8.2); Triglycerides 279 mg/dL (35-150); Uric Acid 10.5 mg/dL (3.5-8.5)
[2022-07-25 08:50] LABS: Percent Free Testosterone 3.86 % (1.50-4.20); Testosterone Free 20.11 ng/dL (5.00-21.00); Testosterone Total 520.9 ng/dL (264.0-916.0)
== END ==
PROVIDERS: PCP Family Medicine; Referring Provider Family Medicine; Visit Provider Family Medicine
DX: E78.5 Hyperlipidemia, unspecified (principal); I10 Essential (primary) hypertension; R73.03 Prediabetes; R79.89 Other specified abnormal findings of blood chemistry
CPT/HCPCS: 36415; 80053; 80061; 83036; 84402; 84403; 84550

== ENCOUNTER → 2022-10-14 16:47 | Outpatient (CLI) | payer OTHER, MEDICAID, SELFPAY ==
[2022-10-14 18:11] LABS: Hematocrit 43.1 % (41-53); Hemoglobin 15.4 g/dL (13.5-17.5); Mean Corpuscular HGB Conc 35.8 % (30-36); Mean Corpuscular Hemoglobin 32.2 PG (26-34); Platelet Count 244 X10^3/uL (150-400); Red Blood Cell Count 4.79 X10^6/uL (4.5-5.9); Red Cell Distribution Width 12.5 % (11.6-14.8); White Blood Cell Count 7.4 X10^3/uL (4.5-11.0)
[2022-10-14 19:00] LABS: Alanine Aminotransferase 119 IU/L (<50); Albumin 4.6 g/dL (3.5-5.0); Albumin Globulin Ratio 1.5 (1.0-2.8); Alkaline Phosphatase 77 U/L (38-126); Aspartate Aminotransferase 80 IU/L (17-59); BUN Creatinine Ratio 15.3 (6-22); Bilirubin Total 1.3 mg/dL (0.2-1.3); Blood Urea Nitrogen 18 mg/dL (9-20); Calcium 9.8 mg/dL (8.4-10.2); Carbon Dioxide 25 mmol/L (22-32); Chloride 101 mmol/L (98-107); Cholesterol 286 mg/dL (140-199); Estimated Glomerular Filt Rate > 60 mL/min (>60); Globulin 3.1 g/dL (1.7-4.1); Glucose 98 mg/dL (70-100); HDL Cholesterol 51 mg/dL (40-60); Potassium 4.2 mmol/L (3.4-5.1); Sodium 136 mmol/L (137-145); Total Protein 7.7 g/dL (6.3-8.2); Triglycerides 490 mg/dL (35-150); Uric Acid 11.2 mg/dL (3.5-8.5)
[2022-10-14 19:19] LABS: HEMOLYSIS 51 (0-50)
[2022-10-14 19:22] LABS: Prostate Specific Antigen 0.953 ng/mL (0.10-4.00)
[2022-10-14 19:23] LABS: Testosterone 256 ng/dL (132-813)
[2022-10-14 21:21] LABS: Hepatitis B Surface Antigen NEGATIVE s/c (NEGATIVE)
[2022-10-14 21:39] LABS: HIV 1 & 2 Ab/Ag 4th Gen Combo NEGATIVE (NEGATIVE); Hep C Virus Ab w/Reflex Quant NEGATIVE s/c (NEGATIVE)
[2022-10-14 21:50] LABS: TSH w/ Reflex to FT4 2.38 uIU/mL (0.47-4.68)
[2022-10-15 05:27] LABS: Labcorp Hemoglobin (Hb) A1c 5.7 % (4.8-5.6)
[2022-10-16 05:21] LABS: Hepatitis B Surf Ab Qualitativ Non Reactive (.)
== END ==
PROVIDERS: PCP Internal Medicine; Referring Provider Internal Medicine; Visit Provider Internal Medicine
DX: E78.2 Mixed hyperlipidemia (principal); I10 Essential (primary) hypertension; R73.01 Impaired fasting glucose; R79.89 Other specified abnormal findings of blood chemistry; Z20.9 Contact with and (suspected) exposure to unspecified communicable disease; M10.9 Gout, unspecified
CPT/HCPCS: 36415; 80053; 80061; 83036; 84153; 84403; 84443; 84550; 85027; 86706; 86803; 87340; 87389

== ENCOUNTER → 2023-05-29 15:17 | Outpatient (CLI) | payer OTHER, MEDICAID, SELFPAY | PROVIDERS: PCP Internal Medicine; Visit Provider Nurse Practitioner Family | DX: K13.0 Diseases of lips (principal) | CPT/HCPCS: 87070; 87075; 87205 ==

== ENCOUNTER 2023-08-14 09:57 | Emergency (ER) | payer OTHER, MEDICAID, SELFPAY ==
[2023-08-14 10:00] VITALS: BP 146/68; PULSE 72; RESP 15; TEMP 36.8; O2SAT 96; BMI 34.0
--- NOTE | 2023-08-14 10:04 | DI.RAD.S_ITS ---
PROCEDURE: XR CHEST 2V INDICATIONS: cough 2 days TECHNIQUE: 2 views of the chest were acquired. COMPARISON: None. FINDINGS: Surgical changes and devices: None. Lungs and pleura: Lungs are clear. No pleural effusions or pneumothorax. Mediastinum: Mediastinal contours are normal. Heart size is normal. Bones and chest wall: No suspicious bony abnormalities. Soft tissues appear unremarkable. IMPRESSION: No acute cardiopulmonary abnormality is seen. Dictated by: Ananda Fu M.D. on 08/14/2023 at 11:25 Approved by: Ananda Fu M.D. on 08/14/2023 at 11:26
[2023-08-14 10:49] LABS: COVID-19 CEPHEID 4-PLEX PCR Negative (Negative); Influenza A - CEPHEID Flu A POSITIVE (NEGATIVE); Influenza B - CEPHEID Flu B NEGATIVE (NEGATIVE); Respiratory Syncytial Virus Negative (Negative)
[2023-08-14 11:38] VITALS: BP 126/83; PULSE 75; RESP 16; TEMP 36.9; O2SAT 97
--- NOTE | 2023-08-14 15:58 | ED_ITS ---
HPI - URI/Sore Throat <Kelsey Chilel PA-C - Last Filed: 08/14/23 16:03> General Chief Complaint: Upper Respiratory Symptoms Stated Complaint: chest pain when coughing Time Seen by Provider: 08/14/23 11:30 Source: patient Mode of arrival: Ambulatory History of Present Illness HPI Narrative: Patient is a 52-year-old male who presents with 2 days of fatigue, cough, body aches and chest congestion. Denies fever or chills, sore throat, ear pain, runny nose. He has not taken a COVID test at home but does not feel like previous episodes of COVID. Recently free of alcohol and marijuana x3 weeks, feeling pretty good overall. Patient has some chest pain with coughing fits but not at rest. Has been taking garlic, bone breath and fluids as treatment. Related Data Home Medications Medication Instructions Recorded Confirmed cholecalciferol (vitamin D3) 1 tab PO BEDTIME 09/11/20 05/29/23 Saccharomyces boulardii [Daily 1 cap PO DAILY 10/14/22 05/29/23 Probiotic (S. boulardii)] ibuprofen 800 mg tablet 800 mg PO TID PRN pain 10/14/22 05/29/23 Previous Rx's Medication Instructions Recorded colchicine 0.6 mg capsule 0.6 mg PO .COMPLEX #30 caps 10/09/20 needle (disp) 23 gauge 23 gauge x #12 ea 03/15/21 1 (Monoject Hypodermic Cameron) acetaminophen 325 mg capsule 650 mg (2 x 325 mg) PO QID PRN 03/27/21 (Tylenol) pain #30 caps syringe (disposable) 3 mL #12 ea 06/22/21 tamsulosin 0.4 mg capsule 0.4 mg PO BEDTIME #90 caps 02/06/23 allopurinol 300 mg tablet 300 mg PO DAILY #90 tabs 04/07/23 lisinopril 10 mg tablet 10 mg PO DAILY #90 tabs 04/29/23 mupirocin 2 % topical ointment 1 applic topical TID #15 grams 05/29/23 testosterone cypionate 200 mg/mL 100 mg (0.5 mL) IM QWEEK #10 mL 06/18/23 intramuscular oil (Depo-Testosterone) Allergies Allergy/AdvReac Type Severity Reaction Status Date / Time Penicillins Allergy Intermediate Rash Verified 08/14/23 09:59 Review of Systems <Kelsey Chilel PA-C - Last Filed: 08/14/23 16:03> Review of Systems ROS Unobtainable: All systems reviewed & are unremarkable except as noted in HPI and below Patient History <Kelsey Chilel PA-C - Last Filed: 08/14/23 16:03> Medical History Obesity (BMI 30.0-34.9) History of testicular cancer History of COVID-19 Alcohol use disorder Impaired fasting glucose Mixed hyperlipidemia Essential hypertension History of sepsis Inguinal hernia [place] syndrome Pneumonia COVID-19 (~2019) Chicken pox Herpes BPH (benign prostatic hyperplasia) Borderline hypertension Low testosterone in male Gout (~2019) Surgical History Hx of bilateral inguinal hernia repair (03/27/21) History of orchiectomy (2003) Anesthesia History of testicular surgery (~2002) Family History Mother Diabetes mellitus Oxygen deficiency History of heart disease Hypertension Hyperlipidemia Mental health problem Social History 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 Well-developed patient, in no a cute distress. NEURO: AOx3. HEAD: Atraumatic. Normocephalic. EYES: Pupils equal round and reactive. Extraocular motions intact. No scleral icterus. No injection or drainage. ENT: Nose without bleeding or purulent drainage. Throat without erythema, tonsillar hypertrophy or exudate. Airway patent. CARDIOVASCULAR: Regular rate and rhythm without murmurs, gallops, or rubs. RESPIRATORY: Clear to auscultation. Breath sounds equal bilaterally. No wheezes, rales, or rhonchi. EXTREMITIES: No edema or joint tenderness. SKIN: No rash or erythema of visible areas Initial Vital Signs Initial Vital Signs: Vital Signs Temperature 98.2 F 08/14/23 10:00 Pulse Rate 72 08/14/23 10:00 Respiratory Rate 15 08/14/23 10:00 Blood Pressure 146/68 H 08/14/23 10:00 Pulse Oximetry 96 08/14/23 10:00 Oxygen Delivery Method Room Air 08/14/23 10:00 <Shanta Leung DO - Last Filed: 08/17/23 00:30> Initial Vital Signs Initial Vital Signs: Vital Signs Temperature 98.2 F 08/14/23 10:00 Pulse Rate 72 08/14/23 10:00 Respiratory Rate 15 08/14/23 10:00 Blood Pressure 146/68 H 08/14/23 10:00 Pulse Oximetry 96 08/14/23 10:00 Oxygen Delivery Method Room Air 08/14/23 10:00 Course <Kelsey Chilel PA-C - Last Filed: 08/14/23 16:03> Orders Ordered: ED Orders 08/14/23 10:04 Chest [XR chest 2V] Stat Covid-19 + FLU A/B + RSV - PCR Stat 08/14/23 10:13 EKG-12 Lead Stat Vital Signs Vital signs: Vital Signs - 8 hr 08/14/23 10:00 08/14/23 11:38 Temperature 98.2 F 98.4 F Pulse Rate 72 75 Respiratory Rate 15 16 Blood Pressure 146/68 H 126/83 Pulse Oximetry 96 97 Oxygen Delivery Method Room Air Room Air <Shanta Leung DO - Last Filed: 08/17/23 00:30> Orders Ordered: ED Orders 08/14/23 10:04 Chest [XR chest 2V] Stat Covid-19 + FLU A/B + RSV - PCR Stat 08/14/23 10:13 EKG-12 Lead Stat Vital Signs Vital signs: Vital Signs - 8 hr 08/14/23 10:00 08/14/23 11:38 Temperature 98.2 F 98.4 F Pulse Rate 72 75 Respiratory Rate 15 16 Blood Pressure 146/68 H 126/83 Pulse Oximetry 96 97 Oxygen Delivery Method Room Air Room Air MDM - URI/Sore Throat <Kelsey Chilel PA-C - Last Filed: 08/14/23 16:03> Lab Data Labs: Lab Results 08/14/23 Range/Units 10:04 SARS-CoV-2 (PCR) Negative (Negative) Influenza A (RT-PCR) Flu a positive H (NEGATIVE) Influenza B (RT-PCR) Flu b negative (NEGATIVE) RSV (PCR) Negative (Negative) Imaging Data Chest x-ray: Radiologist's Impression: PROCEDURE: XR CHEST 2V INDICATIONS: cough 2 days TECHNIQUE: 2 views of the chest were acquired. COMPARISON: None. FINDINGS: Surgical changes and devices: None. Lungs and pleura: Lungs are clear. No pleural effusions or pneumothorax. Mediastinum: Mediastinal contours are normal. Heart size is normal. Bones and chest wall: No suspicious bony abnormalities. Soft tissues appear unremarkable. IMPRESSION: No acute cardiopulmonary abnormality is seen. Dictated by: Ananda Fu M.D. on 08/14/2023 at 11:25 Approved by: Ananda Fu M.D. on 08/14/2023 at 11:26 ECG Data Interpretation: Normal sinus rhythm, rate 71, TN 184 milliseconds, QRS 80 milliseconds, QT [address]-T changes. MDM Narrative Medical decision making narrative: Multiple etiologies for patient's symptoms considered including, but not limited to: Viral respiratory illness, chest pain secondary to ACS versus curve of the pericarditis Viral PCR testing positive for influenza A, which explains his symptoms. Chest x-ray is very reassuring without evidence of pneumonia, pneumothorax or other abnormality. EKG is normal. Patient's vital signs are within normal limits and he is afebrile. Patient at the tail end of the window for Tamiflu but does not have any risk factors for severe disease, patient not interested in taking an antiviral. Discussed supportive care measures at home, infection control and when he can return to work. Patient states understanding of the instructions and return precautions. Patient's symptoms improved over duration of stay with above-stated therapies. Findings and discharge diagnosis discussed with patient/family followed by verbalization of understanding Return precautions discussed with patient/family whom verbalize understanding of diagnosis and plan <Shanta Leung DO - Last Filed: 08/17/23 00:30> Lab Data Labs: Lab Results 08/14/23 Range/Units 10:04 SARS-CoV-2 (PCR) Negative (Negative) Influenza A (RT-PCR) Flu a positive H (NEGATIVE) Influenza B (RT-PCR) Flu b negative (NEGATIVE) RSV (PCR) Negative (Negative) Discharge Plan Departure Patient Disposition: Home Clinical Impression: Influenza A Instructions: DI for Influenza -- Adult Activity Restrictions/Additional Instructions: *You have been diagnosed with influenza A. This is a viral infection that causes fever, chills, cough, body aches, fatigue. It is easily transmissible. I would suggest wearing a mask at home frequent handwashing. Do not go around elderly people or young babies and tried to stay home until you are feeling better. You can use [id number] cough and cold medicines for your symptoms including Mucinex, and Tylenol or ibuprofen for body aches or fever. Be sure to drink plenty of water. If you develop any chest pain that is not associated with coughing, difficulty breathing, or other concerning symptoms, please return for reassessment. Your chest x-ray did not show any signs of pneumonia today and your EKG was normal. Your lung sounds are clear and your vital signs look good. I suspect you need a few days of rest and lots of fluids to recover from this illness. *What to do: *Please continue to take your regular medications as directed. [ ] New medication prescriptions sent to your pharmacy: [ ] [ ] New medication written as a paper prescription [x] No new medications given *Please follow up with your primary care provider in 2-3 days, call for an appointment. Let them know you were seen in the Emergency Department and that we ask that you be seen in follow up. We will electronically transmit a record of today's note if your PCP is in our system *If you do not have a primary care provider please contact the [facility] Resource line at [phone]. They will ask some questions about your medical history and help get you set up with a doctor in the community. *Return to Emergency Department if you should have any new, worsening or concerning symptoms, such as [fever greater than 101 F, shaking chills, worsening pain, persistent vomiting or other concerning symptoms]. Prescriptions: No Action mupirocin 2 % ointment 1 applic topical TID Qty: 15 0RF (DME) needle (disp) 23 gauge [Monoject Hypodermic Cameron] 23 gauge x 1 needle See Rx Instructions .ROUTE .MEDSUPPLY Qty: 12 2RF Rx Instructions: Use to inject Testosteron IM once weekly (DME) syringe (disposable) 3 mL syringe See Rx Instructions .ROUTE .COMPLEX Qty: 12 0RF Dose Instruction: USE TO INJECT TESTOSTERONE IN THE MUSCLE ONCE WEEKLY Rx Instructions: USE TO INJECT TESTOSTERONE IN THE MUSCLE ONCE WEEKLY tamsulosin 0.4 mg capsule 0.4 mg PO BEDTIME Qty: 90 3RF allopurinol 300 mg tablet 300 mg PO DAILY Qty: 90 0RF lisinopril 10 mg tablet 10 mg PO DAILY Qty: 90 3RF testosterone cypionate [Depo-Testosterone] 200 mg/mL oil 100 mg IM QWEEK Qty: 10 5RF cholecalciferol (vitamin D3) 1 tab PO BEDTIME colchicine 0.6 mg capsule 0.6 mg PO .COMPLEX Qty: 30 2RF Rx Instructions: 0.6 mg PO 1 hour as needed gout; One p.o. Q hour max 6 per day as needed gout attack ibuprofen 800 mg tablet 800 mg PO TID PRN (Reason: pain) Saccharomyces boulardii [Daily Probiotic (S. boulardii)] 1 cap PO DAILY acetaminophen [Tylenol] 325 mg capsule 650 mg PO QID PRN (Reason: pain) Qty: 30 0RF Referrals: Roge Marie MD [Primary Care Provider] - Stand Alone Forms: Patient Portal/API ED Sign-out <Shanta Leung DO - Last Filed: 08/17/23 00:30> Cosign ED Attending Alvarez Attestation: I was available for consultation.
== END 2023-08-14 12:07 | disposition home or self-care (01) ==
PROVIDERS: Emergency Medicine; Emergency Provider Physician Assistant; PCP Internal Medicine
DX: J10.1 Influenza due to other identified influenza virus with other respiratory manifestations (principal); Z20.822 Contact with and (suspected) exposure to COVID-19
CPT/HCPCS: 0241U; 71046; 93005; 99281; 99284

== ENCOUNTER → 2023-08-25 09:58 | Outpatient (CLI) | payer OTHER, MEDICAID, SELFPAY ==
[2023-08-25 10:48] LABS: Alanine Aminotransferase 70 IU/L (<50); Albumin 4.5 g/dL (3.5-5.0); Albumin Globulin Ratio 1.4 (1.0-2.8); Alkaline Phosphatase 67 U/L (38-126); Aspartate Aminotransferase 43 IU/L (17-59); BUN Creatinine Ratio 15.7 (6-22); Bilirubin Total 1.6 mg/dL (0.2-1.3); Bilirubin Unconjugated 1.3 mg/dL (0.0-1.1); Blood Urea Nitrogen 11 mg/dL (9-20); Calcium 10.1 mg/dL (8.4-10.2); Carbon Dioxide 24 mmol/L (22-32); Chloride 104 mmol/L (98-107); Estimated Glomerular Filt Rate > 60 mL/min (>60); Globulin 3.2 g/dL (1.7-4.1); Glucose 122 mg/dL (70-100); HEMOLYSIS < 15 (0-50); Potassium 4.5 mmol/L (3.4-5.1); Sodium 136 mmol/L (137-145); Total Protein 7.7 g/dL (6.3-8.2)
[2023-08-25 10:59] LABS: Hematocrit 46.1 % (41-53); Hemoglobin 16.6 g/dL (13.5-17.5); Mean Corpuscular HGB Conc 35.9 % (30-36); Mean Corpuscular Hemoglobin 31.9 PG (26-34); Platelet Count 253 X10^3/uL (150-400); Red Blood Cell Count 5.19 X10^6/uL (4.5-5.9); Red Cell Distribution Width 12.6 % (11.6-14.8); White Blood Cell Count 6.5 X10^3/uL (4.5-11.0)
[2023-08-25 11:19] LABS: Testosterone 504 ng/dL (71.8-623)
== END ==
LOC: LAB 09:59
PROVIDERS: PCP Internal Medicine; Referring Provider Internal Medicine; Visit Provider Internal Medicine
DX: R79.89 Other specified abnormal findings of blood chemistry (principal); F10.90 Alcohol use, unspecified, uncomplicated; Z85.47 Personal history of malignant neoplasm of testis
CPT/HCPCS: 36415; 80048; 80076; 84403; 85027

== ENCOUNTER → 2024-08-03 08:50 | Outpatient (CLI) | payer BC, SELFPAY ==
[2024-08-03 10:00] LABS: Hematocrit 47.1 % (41-53); Hemoglobin 16.6 g/dL (13.5-17.5); Mean Corpuscular HGB Conc 35.2 % (30-36); Mean Corpuscular Hemoglobin 30.6 PG (26-34); Platelet Count 243 X10^3/uL (150-400); Red Blood Cell Count 5.41 X10^6/uL (4.5-5.9); White Blood Cell Count 6.1 X10^3/uL (4.5-11.0)
[2024-08-03 10:47] LABS: Alanine Aminotransferase 50 IU/L (<50); Albumin 4.8 g/dL (3.5-5.0); Albumin Globulin Ratio 2.1 (1.0-2.8); Alkaline Phosphatase 70 U/L (38-126); Aspartate Aminotransferase 34 IU/L (17-59); BUN Creatinine Ratio 12.6 (6-22); Bilirubin Total 2.1 mg/dL (0.2-1.3); Blood Urea Nitrogen 11 mg/dL (9-20); Calcium 9.9 mg/dL (8.4-10.2); Carbon Dioxide 24 mmol/L (22-32); Chloride 106 mmol/L (98-107); Cholesterol 219 mg/dL (140-199); Estimated Glomerular Filt Rate > 60 mL/min (>60); Globulin 2.3 g/dL (1.7-4.1); Glucose 108 mg/dL (70-100); HDL Cholesterol 48 mg/dL (40-60); HEMOLYSIS < 15 (0-50); LDL Cholesterol Calculated 142 mg/dL (<100); Potassium 4.7 mmol/L (3.4-5.1); Sodium 139 mmol/L (137-145); Total Protein 7.1 g/dL (6.3-8.2); Triglycerides 144 mg/dL (35-150); Uric Acid 7.5 mg/dL (3.5-8.5)
[2024-08-03 11:08] LABS: Prostate Specific Antigen Scrn 1.43 ng/mL (0.1-4.0)
[2024-08-03 11:11] LABS: Testosterone 476 ng/dL (71.8-623)
[2024-08-03 11:12] LABS: TSH w/ Reflex to FT4 2.24 uIU/mL (0.47-4.68)
[2024-08-03 11:28] LABS: Vitamin B12 Reflex MMA if <400 426 pg/mL (239-931)
== END ==
PROVIDERS: PCP Internal Medicine; Referring Provider Internal Medicine; Visit Provider Internal Medicine
DX: R79.89 Other specified abnormal findings of blood chemistry (principal); I10 Essential (primary) hypertension; E78.2 Mixed hyperlipidemia; R73.01 Impaired fasting glucose; Z12.5 Encounter for screening for malignant neoplasm of prostate; E53.8 Deficiency of other specified B group vitamins; M10.9 Gout, unspecified
CPT/HCPCS: 36415; 80053; 80061; 82607; 83036; 84403; 84443; 84550; 85027; G0103

== ENCOUNTER → 2024-09-16 08:50 | Outpatient (CLI) | payer BC, SELFPAY ==
[2024-09-16 09:59] LABS: Erythrocyte Sedimentation Rate 1 MM/HR (0-15)
[2024-09-16 10:04] LABS: Rheumatoid Factor < 8.6 IU/mL (<12.0)
[2024-09-16 10:05] LABS: C-Reactive Protein Quant < 0.5 mg/dL (<1.0)
[2024-09-17 20:11] LABS: CCP Antibodies IgG/IgA 1 units (0-19)
== END ==
PROVIDERS: PCP Internal Medicine; Referring Provider Internal Medicine; Visit Provider Internal Medicine
DX: M79.641 Pain in right hand (principal); M79.642 Pain in left hand; M06.4 Inflammatory polyarthropathy
CPT/HCPCS: 36415; 85651; 86038; 86140; 86200; 86430

== ENCOUNTER → 2024-09-20 12:11 | Outpatient (CLI) | payer BC, SELFPAY ==
--- NOTE | 2024-09-20 12:12 | DI.RAD.S_ITS ---
PROCEDURE: XR HAND LT 2V INDICATIONS: hand swelling/pain TECHNIQUE: 2 views of the hand(s) acquired. COMPARISON: None. FINDINGS: No acute fracture or dislocation. No osseous erosions or abnormal soft tissue calcifications. The joint spaces are preserved. Small subchondral cyst formation at the volar scaphoid waist. Mildly dysmorphic appearance of the distal radius and distal ulna, possibly secondary to prior, healed fractures. IMPRESSION: 1. No acute fracture or dislocation. 2. No radiographic evidence of inflammatory arthritis at this time. Dictated by: Brian Tovar M.D. on 09/20/2024 at 16:13 Approved by: Brian Tovar M.D. on 09/20/2024 at 16:15
--- NOTE | 2024-09-20 12:12 | DI.RAD.S_ITS ---
PROCEDURE: XR HAND RT 2V INDICATIONS: hand swelling/pain TECHNIQUE: 2 views of the hand(s) acquired. COMPARISON: [facility], CR, XR HAND LT 2V, 09/20/2024, 12:27. FINDINGS: No acute fracture or dislocation. No osseous erosions. No abnormal soft tissue calcifications. Small hooked osteophytes along the 2nd-4th metacarpal heads. The joint spaces are otherwise preserved. IMPRESSION: Small hooked osteophytes at the 2nd-4th metacarpal heads. 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 Dictated by: Brian Tovar M.D. on 09/20/2024 at 16:15 Approved by: Brian Tovar M.D. on 09/20/2024 at 16:18
== END ==
LOC: RAD 12:12
PROVIDERS: PCP Internal Medicine; Referring Provider Internal Medicine; Visit Provider Internal Medicine
DX: M79.641 Pain in right hand (principal); M79.642 Pain in left hand; M25.741 Osteophyte, right hand
CPT/HCPCS: 73120

== ENCOUNTER 2024-10-13 08:04 | Emergency (ER) | payer BC, SELFPAY ==
[2024-10-13] VITALS (12 sets, daily range): BP systolic 121–186; BP diastolic 71–128; PULSE 56–88; RESP 16; TEMP 36.4; O2SAT 91–98; BMI 35.9
--- NOTE | 2024-10-13 08:18 | ED_ITS ---
HPI - General Adult General Chief complaint: Abdominal Pain Stated complaint: Lower back pain radiating to upper/nausea/bloated Time Seen by Provider: 10/13/24 08:04 History of Present Illness HPI narrative: 53-year-old gentleman with a history of hypertension not taking lisinopril as prescribed, hyperlipidemia, impaired fasting glucose, history of testicular cancer who comes in complaining of severe abdominal pain. Initially he thought that this was back pain, he did strain his low back slightly about a week ago but it was seeming to improve. Describing his pain it is flank on the left side left lower quadrant, left upper quadrant and on physical exam right lower quadrant. Acute onset associated with diaphoresis and nausea secondary to pain. No recent chest pain, palpitations, dyspnea, orthopnea, viral etiology or fevers. Related Data Home Medications Medication Instructions Recorded Confirmed cholecalciferol (vitamin D3) 1 tab PO BEDTIME 09/11/20 09/29/23 Saccharomyces boulardii [Daily 1 cap PO DAILY 10/14/22 09/29/23 Probiotic (S. boulardii)] Previous Rx's Medication Instructions Recorded colchicine 0.6 mg capsule 0.6 mg PO .COMPLEX #30 caps 10/09/20 needle (disp) 23 gauge 23 gauge x #12 ea 03/15/21 1 (Monoject Hypodermic [place]) acetaminophen 325 mg capsule 650 mg (2 x 325 mg) PO QID PRN 03/27/21 (Tylenol) pain #30 caps syringe (disposable) 3 mL #12 ea 06/22/21 mupirocin 2 % topical ointment 1 applic topical TID #15 grams 05/29/23 allopurinol 300 mg tablet 300 mg PO DAILY #90 tabs 10/06/23 testosterone cypionate 200 mg/mL 100 mg (0.5 mL) IM QWEEK #10 mL 08/23/24 intramuscular oil (Depo-Testosterone) ondansetron 4 mg disintegrating 4 mg PO Q8H PRN nausea and 10/13/24 tablet vomiting #14 tabs oxycodone-acetaminophen 5 mg-325 1 tab PO Q6H PRN pain #14 tabs 10/13/24 mg tablet tamsulosin 0.4 mg capsule 0.4 mg PO DAILY #30 caps 10/13/24 Allergies Allergy/AdvReac Type Severity Reaction Status Date / Time Penicillins Allergy Intermediate Rash Verified 09/16/24 07:56 Review of Systems Review of Systems Narrative: Pertinent positive and negative findings as per HPI Patient History Medical History Polyneuropathy, unspecified Obesity (BMI 30.0-34.9) History of testicular cancer History of COVID-19 Alcohol use disorder Impaired fasting glucose Mixed hyperlipidemia Essential hypertension History of sepsis Inguinal hernia [place] syndrome Pneumonia COVID-19 (~2019) Chicken pox Herpes BPH (benign prostatic hyperplasia) Borderline hypertension Low testosterone in male Gout (~2019) Surgical History Hx of bilateral inguinal hernia repair (03/27/21) History of orchiectomy (2003) Anesthesia History of testicular surgery (~2002) Family History Mother Diabetes mellitus Oxygen deficiency History of heart disease Hypertension Hyperlipidemia Mental health problem Social History 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[place]), manufacturing electrician, grown children household members: significant other and family Smoking Status: Never smoker alcohol intake: current substance use type: former substance user, marijuana and crack/cocaine Smoking Status: Never smoker alcohol intake frequency: holidays/special occasions only Exam Initial Vital Signs Initial Vital Signs: Vital Signs Pulse Rate 77 10/13/24 08:13 Blood Pressure 185/128 H 10/13/24 08:13 Pulse Oximetry 98 10/13/24 08:13 General: Appears acutely uncomfortable, difficult finding a way to hold still on the gurney for triage HEENT: Moist mucous membranes, normal sclera with reactive pupils, Respiratory: Lungs are clear to auscultation, no wheezing no rales no rhonchi. Full and symmetrical air movement Cardiac: Regular rate and rhythm no murmurs no bruits Abdomen: Soft, tender left lower quadrant left flank minor tenderness in the right lower quadrant and left upper quadrant. Appropriate bowel tones, no palpable masses, no rebound or guarding Skin: Warm and dry, no rashes Neurologic: Grossly neurologically intact with no obvious asymmetries or abnormalities Extremities: No trauma, well perfused Psych: Cooperative, appropriate insight and affect Course Orders Ordered: ED Orders 10/13/24 08:17 CT abdomen pelvis w con Stat 10/13/24 08:25 Complete Blood Count AUTO DIFF Stat Comprehensive Metabolic Panel Stat Lipase Stat Hydromorphone HCl (Hydromorphone 0.5 Mg Inj) 0.5 mg IV Q15MIN PRN PRN Reason: Pain, Last Admin: 10/13/24 09:09 Dose: 0.5 mg Documented By: Admin: 10/13/24 08:42 Dose: 0.5 mg Documented By: Admin: 10/13/24 08:34 Dose: 0.5 mg Documented By: KENRICK Discontinued Medications Sodium Chloride (Normal Saline 0.9%) 1,000 mls @ 1,000 mls/hr IV BOLUS ONE Stop: 10/13/24 09:16 Last Infusion: 10/13/24 09:35 Dose: Infused Documented By: Admin: 10/13/24 08:33 Dose: 1,000 mls/hr Documented By: KENRICK Ketorolac Tromethamine (Ketorolac 30 Mg/Ml Vial) 15 mg IV NOW ONE Stop: 10/13/24 08:18 Last Admin: 10/13/24 08:34 Dose: 15 mg Documented By: KENRICK Ondansetron HCl (Ondansetron 4 Mg/2 Ml Inj) 4 mg IV NOW ONE Stop: 10/13/24 08:18 Last Admin: 10/13/24 08:34 Dose: 4 mg Documented By: KENRICK Oxycodone/Acetaminophen (Oxycodone/Acetaminophen 5/325 Tablet) 2 tab PO NOW ONE Stop: 10/13/24 10:50 Last Admin: 10/13/24 10:57 Dose: 2 tab Documented By: KENRICK Tamsulosin HCl (Tamsulosin 0.4 Mg Capsule) 0.4 mg PO NOW ONE Stop: 10/13/24 10:50 Last Admin: 10/13/24 10:57 Dose: 0.4 mg Documented By: KENRICK Vital Signs Vital signs: Vital Signs - 8 hr 10/13/24 08:13 10/13/24 08:13 10/13/24 08:15 Temperature Pulse Rate 77 72 Respiratory Rate Blood Pressure 185/128 H Pulse Oximetry 98 98 Oxygen Delivery Method 10/13/24 08:15 10/13/24 08:20 10/13/24 08:30 Temperature 97.6 F Pulse Rate 76 85 Respiratory Rate 16 Blood Pressure 186/114 H 186/114 H Pulse Oximetry 98 96 Oxygen Delivery Method Room Air 10/13/24 08:42 10/13/24 08:42 10/13/24 09:00 Temperature Pulse Rate 83 Respiratory Rate Blood Pressure 172/102 H 151/85 H Pulse Oximetry 97 Oxygen Delivery Method 10/13/24 09:00 10/13/24 09:30 10/13/24 09:30 Temperature Pulse Rate 72 57 L Respiratory Rate Blood Pressure 158/93 H Pulse Oximetry 97 94 Oxygen Delivery Method 10/13/24 10:00 10/13/24 10:00 10/13/24 10:30 Temperature Pulse Rate Respiratory Rate Blood Pressure 121/71 146/77 H Pulse Oximetry 91 Oxygen Delivery Method 10/13/24 10:30 Temperature Pulse Rate 88 Respiratory Rate Blood Pressure Pulse Oximetry 95 Oxygen Delivery Method Medical Decision Making Lab Data 10/13/24 08:25 10/13/24 08:25 Labs: Lab Results 10/13/24 Range/Units 08:25 WBC 6.2 (4.5-11.0) X10^3/uL RBC 5.26 (4.5-5.9) X10^6/uL Hgb 16.2 (13.5-17.5) g/dL Hct 45.9 (41-53) % MCV 87.4 (80-100) fL MCH 30.9 (26-34) PG MCHC 35.4 (30-36) % RDW 13.4 (11.6-14.8) % Plt Count 242 (150-400) X10^3/uL Neut % (Auto) 46.5 L (50-75) % Lymph % (Auto) 43.4 H (25-40) % [place] % (Auto) 7.3 (3-14) % Eos % (Auto) 2.2 (2-4) % Baso % (Auto) 0.6 (0-2) % Neut # (Auto) 2900 (8236-3899) /uL Lymph # (Auto) 2700 (0124-7092) /uL [place] # (Auto) 500 (0-900) /uL Eos # (Auto) 100 (0-450) /uL Baso # (Auto) 0 (0-100) /uL Sodium 139 (137-145) mmol/L Potassium 4.5 (3.4-5.1) mmol/L Chloride 105 (98-107) mmol/L Carbon Dioxide 24 (22-32) mmol/L BUN 15 (9-20) mg/dL Creatinine 0.98 (0.66-1.25) mg/dL Estimated GFR > 60 (>60) mL/min BUN/Creatinine Ratio 15.3 (6-22) Glucose 149 H (70-100) mg/dL Calcium 9.6 (8.4-10.2) mg/dL Total Bilirubin 1.6 H (0.2-1.3) mg/dL AST 57 (17-59) IU/L ALT 74 H (<50) IU/L Alkaline Phosphatase 79 (38-126) U/L Total Protein 7.4 (6.3-8.2) g/dL Albumin 4.7 (3.5-5.0) g/dL Globulin 2.7 (1.7-4.1) g/dL Albumin/Globulin Ratio 1.7 (1.0-2.8) Lipase 73 (23-300) U/L Urine Dip Bedside Urine Glucose Negative Bedside Urine Bilirubin - Negative Bedside Urine Ketone - Negative Urine Specific [place] 1.015 Bedside Urine Occult Blood - Negative Bedside Urine pH 6.0 Bedside Urine Protein - Negative Bedside Urine Urobilinogen - Negative Bedside Urine Nitrite - Negative Bedside Urine Leukocytes - Negative Esterase Point of care testing: Urine Dip Bedside Urine Glucose Negative Bedside Urine Bilirubin - Negative Bedside Urine Ketone - Negative Urine Specific [place] 1.015 Bedside Urine Occult Blood - Negative Bedside Urine pH 6.0 Bedside Urine Protein - Negative Bedside Urine Urobilinogen - Negative Bedside Urine Nitrite - Negative Bedside Urine Leukocytes - Negative Esterase Imaging Data CT scan - abdomen/pelvis: Radiologist's Impression: PROCEDURE: CT ABDOMEN PELVIS W CON INDICATIONS: abdominal pain TECHNIQUE: After the administration of intravenous contrast, axial sections acquired from the lung bases to the pubic symphysis. Coronal and sagittal reformats were performed. For radiation dose reduction, the following was used: automated exposure control, adjustment of mA and/or kV according to patient size. COMPARISON: [facility], CT, CT ABDOMEN PELVIS W CON, 06/09/2021, 16:03. FINDINGS: Image quality: Diagnostic. Lower Chest: No significant findings. ABDOMEN: Liver: No solid mass. Gallbladder: No radiopaque gallstones or wall thickening. Biliary ducts: No biliary dilation. Pancreas: No ductal dilation. Spleen: Size is within normal limits. Adrenal Glands: Growing 1.6 cm right adrenal nodule. Kidneys and Ureters: Obstructing 3 mm stone in the left UVJ, resulting in moderate hydronephrosis and hydroureter. Additional small burden of bilateral, punctate, nonobstructing nephrolithiasis. Stomach and Bowel: Normal colonic caliber, without significant wall thickening. Normal appendix. Peritoneum: No abnormal intraperitoneal fluid. No free air. Ventral Wall: No significant ventral hernia. Abdominal Nodes: No retroperitoneal or mesenteric adenopathy by size criteria. Vessels: Aorta and inferior vena cava are normal in size. PELVIS: Pelvic Organs: Unremarkable. Bladder: No bladder wall thickening, accounting for underdistention. Pelvic Nodes: No enlarged lymph nodes. Miscellaneous: No inguinal hernias are seen. Bones: No aggressive osseous abnormality. IMPRESSION: Obstructing 3 mm stone in the left UVJ, resulting in moderate hydronephrosis and hydroureter. Growing 1.6 cm right adrenal nodule. Recommend dedicated CT or MRI for characterization (adrenal mass protocol). Dictated by: Jaime Berman M.D. on 10/13/2024 at 8:46 MDM Narrative Medical decision making narrative: CC: Acute onset left-sided abdominal pain Complicating co-morbidities: Uncontrolled hypertension, history of prior kidney stone, recent low back strain Data collected from: patient, Medical records reviewed: Primary care note from September 16 reviewed Differential considered: Kidney stone, diverticulitis, abdominal aneurysm, constipation, doubt musculoskeletal back pain Exam documented above, pertinent findings include: Patient is in a moderate amount of pain but Able to be cooperative. Unable to find a comfortable position and indicating his left flank and lower quadrant is the main source of his pain. He does not have any obvious back pain on palpation. He does not have an acute surgical abdomen Lab Test results independently reviewed as above. Pertinent findings: CBC is unremarkable Chemistries are reassuring with normal creatinine, bilirubin minimally elevated at 1.6 AST elevated at 74 Imaging studies independently reviewed: Obstructing 3 mm stone in the left UVJ, resulting in moderate hydronephrosis and hydroureter. Growing 1.6 cm right adrenal nodule. Recommend dedicated CT or MRI for characterization (adrenal mass protocol). Treatments: Fluid, Toradol Discussion: 53-year-old gentleman with 3 mm left renal stone, significant renal colic pain has been adequately controlled with Toradol IV Dilaudid and fluids initially and Percocet has been helpful following. He feels that he is safe for discharge at this point. Discussed use of Flomax to help encourage stone to pass, ibuprofen, Tylenol, Percocet all for pain control. Did suggest that he follow up with his primary care physician and if he has any complications with the stone we will need to see our urologist. Anticipated course of recovery reviewed. At this time there was no indication for additional imaging, workup or hospitalization and patient is discharge Discharge Plan Departure Patient Disposition: Home Clinical Impression: Ureterolithiasis Instructions: DI for Kidney Stones Activity Restrictions/Additional Instructions: Thank you for coming in today You have a 3 mm kidney stone on the left side in his causing your pain You should be able to pass this by yourself, I am going to give him medications to help. Using 400 mg of ibuprofen (2 [id number] pills) and 1 Tylenol every 6 hours can be very helpful in controlling pain. For significant pain 400 mg of ibuprofen and 1 Percocet we will be helpful The severe pain as well as the narcotic is going to cause constipation, you do need a stool softener I have given you nausea medication to help with the nausea related to pain I have given you a prescription for Flomax, this hopefully will help the ureter, the to between the kidney in the bladder, open up just enough that the stone passes a bit more easily. Once the stone passes you do not need to continue Flomax All prescriptions were sent to [facility] Please do schedule follow up with your primary care physician If you are having pain that can not be controlled with oral pain medications, fevers or new findings do return to the emergency department Prescriptions: New tamsulosin 0.4 mg capsule 0.4 mg PO DAILY Qty: 30 0RF Rx Instructions: stop After kidney stone has passed ondansetron 4 mg tablet,disintegrating 4 mg PO Q8H PRN (Reason: nausea and vomiting) Qty: 14 0RF oxycodone-acetaminophen 5-325 mg tablet 1 tab PO Q6H PRN (Reason: pain) Qty: 14 0RF No Action mupirocin 2 % ointment 1 applic topical TID Qty: 15 0RF (DME) needle (disp) 23 gauge [Monoject Hypodermic [place]] 23 gauge x 1 needle See Rx Instructions .ROUTE .MEDSUPPLY Qty: 12 2RF Rx Instructions: Use to inject Testosteron IM once weekly (DME) syringe (disposable) 3 mL syringe See Rx Instructions .ROUTE .COMPLEX Qty: 12 0RF Dose Instruction: USE TO INJECT TESTOSTERONE IN THE MUSCLE ONCE WEEKLY Rx Instructions: USE TO INJECT TESTOSTERONE IN THE MUSCLE ONCE WEEKLY allopurinol 300 mg tablet 300 mg PO DAILY Qty: 90 3RF testosterone cypionate [Depo-Testosterone] 200 mg/mL oil 100 mg IM QWEEK Qty: 10 5RF cholecalciferol (vitamin D3) 1 tab PO BEDTIME colchicine 0.6 mg capsule 0.6 mg PO .COMPLEX Qty: 30 2RF Rx Instructions: 0.6 mg PO 1 hour as needed gout; One p.o. Q hour max 6 per day as needed gout attack Saccharomyces boulardii [Daily Probiotic (S. boulardii)] 1 cap PO DAILY acetaminophen [Tylenol] 325 mg capsule 650 mg PO QID PRN (Reason: pain) Qty: 30 0RF Referrals: Roge Marie MD [Primary Care Provider] - Stand Alone Forms: Patient Portal/API/Survey
[2024-10-13] MEDS: SODIUM CHLORIDE 0.9% 1,000 ML 1000 ML IV (08:33)
[2024-10-13] MEDS: ONDANSETRON 4 MG/2 ML INJ IV (08:34)
[2024-10-13] MEDS: KETOROLAC 30 MG/ML VIAL 15 MG IV (08:34)
[2024-10-13] MEDS: HYDROMORPHONE 0.5 MG INJ IV ×3 (08:34→09:09)
[2024-10-13 08:40] LABS: Add Manual Diff / Slide Review NO; Basophils Absolute Auto 0 /uL (0-100); Basophils Percent Auto 0.6 % (0-2); Eosinophils Absolute Auto 100 /uL (0-450); Eosinophils Percent Auto 2.2 % (2-4); Hematocrit 45.9 % (41-53); Hemoglobin 16.2 g/dL (13.5-17.5); Lymphocytes Absolute Auto 2700 /uL (1100-4500); Lymphocytes Percent Auto 43.4 % (25-40); Mean Corpuscular HGB Conc 35.4 % (30-36); Mean Corpuscular Hemoglobin 30.9 PG (26-34); Mean Corpuscular Volume 87.4 fL (80-100); Monocytes Absolute Auto 500 /uL (0-900); Monocytes Percent Auto 7.3 % (3-14); Neutrophils Absolute Auto 2900 /uL (1500-7000); Neutrophils Percent Auto 46.5 % (50-75); Platelet Count 242 X10^3/uL (150-400); Red Blood Cell Count 5.26 X10^6/uL (4.5-5.9); Red Cell Distribution Width 13.4 % (11.6-14.8); White Blood Cell Count 6.2 X10^3/uL (4.5-11.0)
[2024-10-13 08:57] LABS: Alanine Aminotransferase 74 IU/L (<50); Albumin 4.7 g/dL (3.5-5.0); Albumin Globulin Ratio 1.7 (1.0-2.8); Alkaline Phosphatase 79 U/L (38-126); Aspartate Aminotransferase 57 IU/L (17-59); BUN Creatinine Ratio 15.3 (6-22); Bilirubin Total 1.6 mg/dL (0.2-1.3); Blood Urea Nitrogen 15 mg/dL (9-20); Calcium 9.6 mg/dL (8.4-10.2); Carbon Dioxide 24 mmol/L (22-32); Chloride 105 mmol/L (98-107); Estimated Glomerular Filt Rate > 60 mL/min (>60); Globulin 2.7 g/dL (1.7-4.1); Glucose 149 mg/dL (70-100); HEMOLYSIS < 15 (0-50); Lipase 73 U/L (23-300); Potassium 4.5 mmol/L (3.4-5.1); Sodium 139 mmol/L (137-145); Total Protein 7.4 g/dL (6.3-8.2)
--- NOTE | 2024-10-13 09:46 | PC.NURSE ---
Pt states that pain is now 6/10 and manageable. Denies n/v at this time.
[2024-10-13] MEDS: OXYCODONE/ACETAMINOPHEN 5/325 TABLET 2 TAB PO (10:57)
[2024-10-13] MEDS: TAMSULOSIN 0.4 MG CAPSULE PO (10:57)
--- NOTE | 2024-10-13 11:23 | PC.NURSE ---
Pt states that his pain is considerably better. 4/10 Able to urinate and urine POC neg.
== END 2024-10-13 12:13 | disposition home or self-care (01) ==
PROVIDERS: Emergency Provider Emergency Medicine; PCP Internal Medicine
DX: N20.1 Calculus of ureter (principal)
CPT/HCPCS: 36415; 74177; 80053; 81003; 83690; 85025; 96361; 96374; 96375; 96376; 99284; J1171; J1885; J2405; Q9967

== ENCOUNTER 2024-10-14 14:18 | Emergency (ER) | payer BC, SELFPAY ==
[2024-10-14] VITALS (7 sets, daily range): BP systolic 131–174; BP diastolic 75–115; PULSE 58–100; RESP 16–18; TEMP 37.5; O2SAT 92–95; BMI 34.7
[2024-10-14] MEDS: ONDANSETRON 4 MG/2 ML INJ IV (15:43)
[2024-10-14 15:52] LABS: Add Manual Diff / Slide Review NO; Basophils Absolute Auto 0 /uL (0-100); Basophils Percent Auto 0.4 % (0-2); Eosinophils Absolute Auto 0 /uL (0-450); Eosinophils Percent Auto 0.3 % (2-4); Hematocrit 45.5 % (41-53); Hemoglobin 15.9 g/dL (13.5-17.5); Lymphocytes Absolute Auto 1200 /uL (1100-4500); Lymphocytes Percent Auto 10.5 % (25-40); Mean Corpuscular HGB Conc 34.8 % (30-36); Mean Corpuscular Hemoglobin 30.4 PG (26-34); Mean Corpuscular Volume 87.4 fL (80-100); Monocytes Absolute Auto 600 /uL (0-900); Monocytes Percent Auto 4.9 % (3-14); Neutrophils Absolute Auto 9900 /uL (1500-7000); Neutrophils Percent Auto 83.9 % (50-75); Platelet Count 234 X10^3/uL (150-400); Red Blood Cell Count 5.21 X10^6/uL (4.5-5.9); Red Cell Distribution Width 13.1 % (11.6-14.8); White Blood Cell Count 11.7 X10^3/uL (4.5-11.0)
[2024-10-14 16:01] LABS: Alanine Aminotransferase 62 IU/L (<50); Albumin 4.7 g/dL (3.5-5.0); Albumin Globulin Ratio 1.6 (1.0-2.8); Alkaline Phosphatase 63 U/L (38-126); Aspartate Aminotransferase 39 IU/L (17-59); BUN Creatinine Ratio 9.7 (6-22); Bilirubin Total 2.9 mg/dL (0.2-1.3); Blood Urea Nitrogen 15 mg/dL (9-20); Calcium 9.3 mg/dL (8.4-10.2); Carbon Dioxide 22 mmol/L (22-32); Chloride 97 mmol/L (98-107); Estimated Glomerular Filt Rate 54 mL/min (>60); Globulin 2.9 g/dL (1.7-4.1); Glucose 168 mg/dL (70-100); HEMOLYSIS < 15 (0-50); Potassium 4.3 mmol/L (3.4-5.1); Sodium 131 mmol/L (137-145); Total Protein 7.6 g/dL (6.3-8.2)
[2024-10-14] MEDS: SODIUM CHLORIDE 0.9% 1,000 ML 1000 ML IV (16:19)
[2024-10-14] MEDS: MORPHINE 4 MG/ML INJ IV ×2 (16:19→17:52)
[2024-10-14 18:04] LABS: Appearance Urine UA CLEAR; Bilirubin Urine UA NEGATIVE (NEGATIVE); Color Urine UA YELLOW; Glucose Urine UA TRACE g/dL (Negative); Ketones Urine UA NEGATIVE (NEGATIVE); Leukocyte Esterase Urine UA NEGATIVE (NEGATIVE); Nitrite Urine UA NEGATIVE (Negative); Occult Blood Urine UA NEGATIVE (Negative); Protein Urine UA NEGATIVE (Negative); Urobilinogen Urine UA 0.2 E.U./dL (0.2); pH Urine UA 5.5 (4.5-8.0)
[2024-10-14 18:18] LABS: Bacteria Urine None Seen; Culture Indicated Urine Cult Not Indicated; RBC Urine None Seen (0-5/HPF); Squamous Epithelial Cell Urine None Seen (0-5/HPF); Urine Volume 10mL (spun); WBC Urine 0-1/HPF (0-5/HPF)
--- NOTE | 2024-10-14 18:20 | DI.CT.S_ITS ---
PROCEDURE: CT ABDOMEN PELVIS W CON INDICATIONS: stone on left side severe pain TECHNIQUE: After the administration of intravenous contrast, axial sections acquired from the lung bases to the pubic symphysis. Coronal and sagittal reformats were performed. For radiation dose reduction, the following was used: automated exposure control, adjustment of mA and/or kV according to patient size. COMPARISON: [facility], CT, CT ABDOMEN PELVIS W CON, 10/13/2024, 8:24. FINDINGS: Image quality: Diagnostic Lower chest: Bibasilar moderate atelectasis and possible aspiration. No pleural effusions. Heart size is prominent. Mildly patulous distal esophagus. Liver: Suspect hepatic steatosis. Gallbladder and biliary system: Possible small gallstones versus sludge. Mildly distended gallbladder, no significant surrounding inflammation. No biliary ductal dilation. Pancreas: No ductal dilation Spleen: Mild splenomegaly Adrenals: Right adrenal nodule measures up to 1.6 cm again seen. Kidneys: No right hydronephrosis. No solid renal mass. Compared to prior imaging, there is persistent mild hydroureteronephrosis, with increased density now seen in the ureter favored to represent contrast excretion from yesterday that is static. Nonobstructing left mid region stone also present. The left UVJ stone measuring 3 mm is in a similar position. Significantly increased left retroperitoneal edema. Vessels and lymph nodes: No abdominal aortic aneurysm. The main portal vein is patent. No pathologic lymphadenopathy by size criteria. Bowel and peritoneum: No small bowel obstruction. Nondilated appendix. No drainable peritoneal ascites or abscess Body wall: Unremarkable Pelvis: Possible scarring anterior to the bladder is similar to prior imaging Heterogeneous enhancement of the prostate not well assessed on CT Bones: There are degenerative changes. No aggressive appearing osseous abnormality. Suspect L2 hemangioma. IMPRESSION: Similar positioning of the left 3 mm UVJ stone, with upstream ureteral contrast stasis and persistent hydronephrosis. There is significantly increased left retroperitoneal edema and fluid, suspicious for forniceal rupture Right adrenal nodule again seen measuring 1.6 cm, consider nonurgent adrenal protocol CT or MRI. Other findings above. Dictated by: Mitchell Cline M.D. on 10/14/2024 at 19:33 Approved by: Mitchell Cline M.D. on 10/14/2024 at 19:38
[2024-10-14] MEDS: HYDROMORPHONE 0.5 MG INJ IV (18:27)
--- NOTE | 2024-10-14 19:38 | ED.ABDPAIN ---
HPI - Abdominal Pain General Chief Complaint: Urogenital-Male Stated Complaint: kidney stone (here this morning) unable to pee Time Seen by Provider: 10/14/24 18:20 History of Present Illness HPI narrative: Patient is a 53-year-old male without significant past medical history diagnosed with kidney stone on left side yesterday 3 mm. Given Percocet pain medication at home. Reports that pain was not well controlled had intense pain double over, not able to walk. Received morphine and Dilaudid here in the ED in his overall feeling much better. He has been drinking fluids he has had decreased urine output but he was able to urinate for us here. Related Data Home Medications Medication Instructions Recorded Confirmed cholecalciferol (vitamin D3) 1 tab PO BEDTIME 09/11/20 09/29/23 Saccharomyces boulardii [Daily 1 cap PO DAILY 10/14/22 09/29/23 Probiotic (S. boulardii)] Previous Rx's Medication Instructions Recorded colchicine 0.6 mg capsule 0.6 mg PO .COMPLEX #30 caps 10/09/20 needle (disp) 23 gauge 23 gauge x #12 ea 03/15/21 1 (Monoject Hypodermic [place]) acetaminophen 325 mg capsule 650 mg (2 x 325 mg) PO QID PRN 03/27/21 (Tylenol) pain #30 caps syringe (disposable) 3 mL #12 ea 06/22/21 mupirocin 2 % topical ointment 1 applic topical TID #15 grams 05/29/23 allopurinol 300 mg tablet 300 mg PO DAILY #90 tabs 10/06/23 testosterone cypionate 200 mg/mL 100 mg (0.5 mL) IM QWEEK #10 mL 08/23/24 intramuscular oil (Depo-Testosterone) ondansetron 4 mg disintegrating 4 mg PO Q8H PRN nausea and 10/13/24 tablet vomiting #14 tabs oxycodone-acetaminophen 5 mg-325 1 tab PO Q6H PRN pain #14 tabs 10/13/24 mg tablet tamsulosin 0.4 mg capsule 0.4 mg PO DAILY #30 caps 10/13/24 oxycodone-acetaminophen 5 mg-325 1 tab PO Q6H PRN pain #14 tabs 10/14/24 mg tablet (Percocet) Allergies Allergy/AdvReac Type Severity Reaction Status Date / Time Penicillins Allergy Intermediate Rash Verified 09/16/24 07:56 Patient History Medical History Polyneuropathy, unspecified Obesity (BMI 30.0-34.9) History of testicular cancer History of COVID-19 Alcohol use disorder Impaired fasting glucose Mixed hyperlipidemia Essential hypertension History of sepsis Inguinal hernia Napavine syndrome Pneumonia COVID-19 (~2019) Chicken pox Herpes BPH (benign prostatic hyperplasia) Borderline hypertension Low testosterone in male Gout (~2019) Surgical History Hx of bilateral inguinal hernia repair (03/27/21) History of orchiectomy (2003) Anesthesia History of testicular surgery (~2002) Family History Mother Diabetes mellitus Oxygen deficiency History of heart disease Hypertension Hyperlipidemia Mental health problem Social History details: ([place]), qualified craft worker electrician, grown children household members: significant other and family Smoking Status: Never smoker alcohol intake: current substance use type: former substance user, marijuana and crack/cocaine Smoking Status: Never smoker alcohol intake frequency: holidays/special occasions only Exam Initial Vital Signs Initial Vital Signs: Vital Signs Temperature 99.5 F 10/14/24 15:23 Pulse Rate 96 H 10/14/24 15:23 Respiratory Rate 18 10/14/24 15:23 Blood Pressure 174/115 H 10/14/24 15:23 Pulse Oximetry 95 10/14/24 15:23 Oxygen Delivery Method Room Air 10/14/24 15:23 GENERAL: Alert 53-year-old male and in no acute distress. HEENT: Head atraumatic,EOMI, pupils reactive, face symmetric, moist mucous membranes CARDIOVASCULAR: Regular rate and rhythm without murmurs, rubs or gallops. RESPIRATORY: Breath sounds equal bilaterally, no wheezes rales or rhonchi. ABDOMEN: Soft, mild tender left lower quadrant pain no guarding or rebound : No CVA tenderness EXTREMITIES: Normal range of motion, no clubbing or edema. Neurovascularly intact NEUROLOGICAL: Alert and oriented x4.Normal gait and speech. SKIN: Warm, dry, no laceration, no petechiae, no rashes or lesions. Course Orders Ordered: Discontinued Medications Hydromorphone HCl (Hydromorphone 0.5 Mg Inj) 0.5 mg IV NOW ONE Stop: 10/14/24 18:21 Last Admin: 10/14/24 18:27 Dose: 0.5 mg Documented By: KEN Sodium Chloride (Normal Saline 0.9%) 1,000 mls @ 1,000 mls/hr IV BOLUS ONE Stop: 10/14/24 17:12 Last Infusion: 10/14/24 17:56 Dose: Infused Documented By: Admin: 10/14/24 16:19 Dose: 1,000 mls/hr Documented By: DANNY Morphine Sulfate (Morphine 4 Mg/Ml Inj) 4 mg IV NOW ONE Stop: 10/14/24 16:14 Last Admin: 10/14/24 16:19 Dose: 4 mg Documented By: DANNY Morphine Sulfate (Morphine 4 Mg/Ml Inj) 4 mg IV NOW ONE Stop: 10/14/24 17:25 Last Admin: 10/14/24 17:52 Dose: 4 mg Documented By: DORIAN Ondansetron HCl (Ondansetron 4 Mg/2 Ml Inj) 4 mg IV NOW PRN PRN Reason: Nausea And Vomiting Last Admin: 10/14/24 15:43 Dose: 4 mg Documented By: DANNY Ondansetron HCl (Ondansetron 4 Mg Odt) 4 mg SL NOW PRN PRN Reason: Nausea And Vomiting Vital Signs Vital signs: Vital Signs - 8 hr 10/14/24 15:23 10/14/24 17:05 10/14/24 17:10 Temperature 99.5 F Pulse Rate 96 H 77 58 L Respiratory Rate 18 18 Blood Pressure 174/115 H 131/82 Pulse Oximetry 95 92 94 Oxygen Delivery Method Room Air Room Air 10/14/24 17:12 10/14/24 17:12 10/14/24 17:30 Temperature Pulse Rate 90 Respiratory Rate Blood Pressure 156/87 H 144/75 H Pulse Oximetry 94 Oxygen Delivery Method 10/14/24 17:30 10/14/24 18:00 10/14/24 18:00 Temperature Pulse Rate 85 87 Respiratory Rate Blood Pressure 142/78 H Pulse Oximetry 94 92 Oxygen Delivery Method MDM - Abdominal Pain Lab Data 10/14/24 15:36 10/14/24 15:36 Labs: Lab Results 10/14/24 10/14/24 10/14/24 Range/Units 15:36 17:58 18:36 WBC 11.7 H D (4.5-11.0) X10^3/uL RBC 5.21 (4.5-5.9) X10^6/uL Hgb 15.9 (13.5-17.5) g/dL Hct 45.5 (41-53) % MCV 87.4 (80-100) fL MCH 30.4 (26-34) PG MCHC 34.8 (30-36) % RDW 13.1 (11.6-14.8) % Plt Count 234 (150-400) X10^3/uL Neut % (Auto) 83.9 H D (50-75) % Lymph % (Auto) 10.5 L D (25-40) % [place] % (Auto) 4.9 (3-14) % Eos % (Auto) 0.3 L (2-4) % Baso % (Auto) 0.4 (0-2) % Neut # (Auto) 9900 H (0717-1427) /uL Lymph # (Auto) 1200 (9954-4007) /uL [place] # (Auto) 600 (0-900) /uL Eos # (Auto) 0 (0-450) /uL Baso # (Auto) 0 (0-100) /uL Sodium 131 L (137-145) mmol/L Potassium 4.3 (3.4-5.1) mmol/L Chloride 97 L (98-107) mmol/L Carbon Dioxide 22 (22-32) mmol/L BUN 15 (9-20) mg/dL Creatinine 1.54 H (0.66-1.25) mg/dL Estimated GFR 54 L (>60) mL/min BUN/Creatinine Ratio 9.7 (6-22) Glucose 168 H (70-100) mg/dL Lactate 2.0 (0.7-2.1) mmol/L Calcium 9.3 (8.4-10.2) mg/dL Total Bilirubin 2.9 H (0.2-1.3) mg/dL AST 39 (17-59) IU/L ALT 62 H (<50) IU/L Alkaline Phosphatase 63 (38-126) U/L Total Protein 7.6 (6.3-8.2) g/dL Albumin 4.7 (3.5-5.0) g/dL Globulin 2.9 (1.7-4.1) g/dL Albumin/Globulin Ratio 1.6 (1.0-2.8) Urine Color Yellow Urine Appearance Clear Urine pH 5.5 (4.5-8.0) Ur Specific [place] 1.010 (1.000-1.035) Urine Protein Negative (Negative) Urine Glucose (UA) Trace H (Negative) g/dL Urine Ketones Negative (NEGATIVE) Urine Occult Blood Negative (Negative) Urine Nitrate Negative (Negative) Urine Bilirubin Negative (NEGATIVE) Urine Urobilinogen 0.2 (0.2) E.U./dL Ur Leukocyte Esterase Negative (NEGATIVE) Urine RBC None seen (0-5/HPF) Urine WBC 0-1/hpf (0-5/HPF) Ur Squamous Epith Cells None seen (0-5/HPF) Urine Bacteria None seen (None) Ur Culture Indicated? Cult not indicated Vol Urine Centrifuged 10ml (spun) Imaging Data CT scan - abdomen/pelvis: Radiologist's Impression: PROCEDURE: CT ABDOMEN PELVIS W CON INDICATIONS: stone on left side severe pain TECHNIQUE: After the administration of intravenous contrast, axial sections acquired from the lung bases to the pubic symphysis. Coronal and sagittal reformats were performed. For radiation dose reduction, the following was used: automated exposure control, adjustment of mA and/or kV according to patient size. COMPARISON: [facility], CT, CT ABDOMEN PELVIS W CON, 10/13/2024, 8:24. FINDINGS: Image quality: Diagnostic Lower chest: Bibasilar moderate atelectasis and possible aspiration. No pleural effusions. Heart size is prominent. Mildly patulous distal esophagus. Liver: Suspect hepatic steatosis. Gallbladder and biliary system: Possible small gallstones versus sludge. Mildly distended gallbladder, no significant surrounding inflammation. No biliary ductal dilation. Pancreas: No ductal dilation Spleen: Mild splenomegaly Adrenals: Right adrenal nodule measures up to 1.6 cm again seen. Kidneys: No right hydronephrosis. No solid renal mass. Compared to prior imaging, there is persistent mild hydroureteronephrosis, with increased density now seen in the ureter favored to represent contrast excretion from yesterday that is static. Nonobstructing left mid region stone also present. The left UVJ stone measuring 3 mm is in a similar position. Significantly increased left retroperitoneal edema. Vessels and lymph nodes: No abdominal aortic aneurysm. The main portal vein is patent. No pathologic lymphadenopathy by size criteria. Bowel and peritoneum: No small bowel obstruction. Nondilated appendix. No drainable peritoneal ascites or abscess Body wall: Unremarkable Pelvis: Possible scarring anterior to the bladder is similar to prior imaging Heterogeneous enhancement of the prostate not well assessed on CT Bones: There are degenerative changes. No aggressive appearing osseous abnormality. Suspect L2 hemangioma. IMPRESSION: Similar positioning of the left 3 mm UVJ stone, with upstream ureteral contrast stasis and persistent hydronephrosis. There is significantly increased left retroperitoneal edema and fluid, suspicious for forniceal rupture Right adrenal nodule again seen measuring 1.6 cm, consider nonurgent adrenal protocol CT or MRI. Other findings above. Dictated by: Mitchell Cline M.D. on 10/14/2024 at 19:33 Approved by: Mitchell Cline M.D. on 10/14/2024 at 19:38 [facility] Narrative Medical decision making narrative: Patient 53-year-old male who has a known 3 mm left-sided kidney stone presenting today with increasing pain. CT shows confirmation of persistent 3 mm left stone, with forniceal rupture and retroperitoneal edema and fluid WBC is 11.7 Lactate 2.0 Creatinine 1.54 previously 0.98 Urinalysis does not show any evidence of UTI 1999 Dr. Huddleston urology updated patient's symptoms test results reviewed CT himself. Reports that if patient's pain is controlled now can be followed up as an outpatient no need for admission. Patient continues to have his pain controlled not requiring any further medications. Thinks he can go home with further p.o. medications. No evidence of sepsis Discharge Plan Departure Patient Disposition: Home Clinical Impression: Kidney stone on left side Instructions: DI for Kidney Stones Activity Restrictions/Additional Instructions: *You have been diagnosed with kidney stone *What to do: At this time increase fluid intake as tolerated. I discussed with Urology at this time we think that you will still pass this kidney stone. *Continue to take medications as directed Percocet 1-2 tablets every 4-6 hours Motrin 600 mg every 6 hours for [id number] pain *Follow up with your primary care provider in 2-3 days or call [phone] Blair *Return to ER if you should have worsening pain not tolerating fluids or any new, worsening or concerning symptoms Minor cauda Prescriptions: New oxycodone-acetaminophen [Percocet] 5-325 mg tablet 1 tab PO Q6H PRN (Reason: pain) Qty: 14 0RF No Action mupirocin 2 % ointment 1 applic topical TID Qty: 15 0RF (DME) needle (disp) 23 gauge [Monoject Hypodermic [place]] 23 gauge x 1 needle See Rx Instructions .ROUTE .MEDSUPPLY Qty: 12 2RF Rx Instructions: Use to inject Testosteron IM once weekly (DME) syringe (disposable) 3 mL syringe See Rx Instructions .ROUTE .COMPLEX Qty: 12 0RF Dose Instruction: USE TO INJECT TESTOSTERONE IN THE MUSCLE ONCE WEEKLY Rx Instructions: USE TO INJECT TESTOSTERONE IN THE MUSCLE ONCE WEEKLY allopurinol 300 mg tablet 300 mg PO DAILY Qty: 90 3RF testosterone cypionate [Depo-Testosterone] 200 mg/mL oil 100 mg IM QWEEK Qty: 10 5RF cholecalciferol (vitamin D3) 1 tab PO BEDTIME colchicine 0.6 mg capsule 0.6 mg PO .COMPLEX Qty: 30 2RF Rx Instructions: 0.6 mg PO 1 hour as needed gout; One p.o. Q hour max 6 per day as needed gout attack Saccharomyces boulardii [Daily Probiotic (S. boulardii)] 1 cap PO DAILY tamsulosin 0.4 mg capsule 0.4 mg PO DAILY Qty: 30 0RF Rx Instructions: stop After kidney stone has passed ondansetron 4 mg tablet,disintegrating 4 mg PO Q8H PRN (Reason: nausea and vomiting) Qty: 14 0RF oxycodone-acetaminophen 5-325 mg tablet 1 tab PO Q6H PRN (Reason: pain) Qty: 14 0RF acetaminophen [Tylenol] 325 mg capsule 650 mg PO QID PRN (Reason: pain) Qty: 30 0RF Referrals: Jeet Huddleston DO [Physician] - Roge Marie MD [Primary Care Provider] - Stand Alone Forms: Patient Portal/API/Survey
== END 2024-10-14 20:32 | disposition home or self-care (01) ==
PROVIDERS: Emergency Medicine; Emergency Provider Emergency Medicine; PCP Internal Medicine
DX: N20.0 Calculus of kidney (principal)
CPT/HCPCS: 36415; 74177; 80053; 81001; 83605; 85025; 96361; 96374; 96375; 96376; 99284; J1171; J2270; J2405; Q9967

== ENCOUNTER → 2024-10-19 11:06 | Outpatient (CLI) | payer BC, SELFPAY ==
[2024-10-19 12:45] LABS: Alanine Aminotransferase 49 IU/L (<50); Albumin 4.8 g/dL (3.5-5.0); Albumin Globulin Ratio 1.7 (1.0-2.8); Alkaline Phosphatase 72 U/L (38-126); Aspartate Aminotransferase 40 IU/L (17-59); BUN Creatinine Ratio 17.5 (6-22); Bilirubin Total 1.4 mg/dL (0.2-1.3); Blood Urea Nitrogen 14 mg/dL (9-20); Calcium 10.3 mg/dL (8.4-10.2); Carbon Dioxide 23 mmol/L (22-32); Chloride 102 mmol/L (98-107); Estimated Glomerular Filt Rate > 60 mL/min (>60); Globulin 2.9 g/dL (1.7-4.1); Glucose 106 mg/dL (70-100); HEMOLYSIS < 15 (0-50); Potassium 4.9 mmol/L (3.4-5.1); Sodium 139 mmol/L (137-145); Total Protein 7.7 g/dL (6.3-8.2)
== END ==
PROVIDERS: Internal Medicine; PCP Internal Medicine; Referring Provider Internal Medicine; Visit Provider Internal Medicine
DX: E78.2 Mixed hyperlipidemia (principal); E80.6 Other disorders of bilirubin metabolism
CPT/HCPCS: 36415; 80053

== ENCOUNTER 2024-10-31 14:14 | Emergency (ER) | payer BC, SELFPAY ==
[2024-10-31] VITALS (9 sets, daily range): BP systolic 123–167; BP diastolic 71–84; PULSE 60–80; RESP 16–18; TEMP 36.4; O2SAT 95–98; BMI 35.3
--- NOTE | 2024-10-31 14:35 | DI.CT.S_ITS ---
PROCEDURE: CT KIDNEY URETER BLADDER (KUB) INDICATIONS: concern for kidney stones/left flank pain, ruptured ureter TECHNIQUE: Axial sections were acquired from the lung bases to the pubic symphysis. Coronal and sagittal reformats were performed. For radiation dose reduction, the following was used: automated exposure control, adjustment of mA and/or kV according to patient size. COMPARISON: [facility], CT, CT ABDOMEN PELVIS W CON, 10/13/2024, 8:24. [facility], CT, CT ABDOMEN PELVIS W CON, 10/14/2024, 18:34. [facility], CT, CT ABDOMEN PELVIS WITH CONTRAST, 10/15/2024, 17:21. FINDINGS: Image quality: Diagnostic. Lower Chest: No significant findings. URINARY: Right Kidney: No stones or hydronephrosis. Right Ureter: No hydroureter. Left Kidney: No hydronephrosis. There is a tiny 1-2 mm nonobstructing left-sided kidney stone, as on series 2, image 66. Left Ureter: No hydroureter. Mild fat stranding can be seen along the course of the left ureter, yet without significant free fluid. Bladder: Normal wall thickness. No stones. ABDOMEN: Liver: No contour-deforming solid mass. Gallbladder: No radiopaque gallstones or wall thickening. Biliary ducts: No biliary dilation. Pancreas: No ductal dilation. Spleen: Size is within normal limits. Adrenal Glands: There is a right adrenal nodule seen measuring -2 Hounsfield units and measuring 1.7 cm. No left adrenal nodules. Stomach and Bowel: Normal colonic caliber, without significant wall thickening. No dilated loops of small bowel are seen. A normal appendix is noted. Peritoneum: No abnormal intraperitoneal fluid. No free air. Ventral Wall: No hernia. Abdominal Nodes: No enlarged retroperitoneal or mesenteric lymph nodes. Vessels: Aorta and inferior vena cava are normal in size. PELVIS: Pelvic Organs: Unremarkable. Pelvic Nodes: Unremarkable. Miscellaneous: No inguinal hernias are seen. Bones: Unremarkable. IMPRESSION: No current obstructing stone is seen. No hydronephrosis is seen. There is minimal fatty stranding seen adjacent to the left ureter, which may be related to recent, resolved obstruction. However, no significant free fluid is seen to suggest a rupture of the ureter. There is a nonobstructing 1-2 mm stone within the left kidney. There is a right adrenal nodule seen. Based upon the imaging characteristics, this is classified as a benign, lipid rich adrenal adenoma. (No additional imaging follow-up is needed for this nodule.) Dictated by: Shiv Bone M.D. on 10/31/2024 at 13:51 Approved by: Shiv Bone M.D. on 10/31/2024 at 13:54
--- NOTE | 2024-10-31 15:00 | ED.ABDPAIN ---
HPI - Abdominal Pain General Chief Complaint: Abdominal Pain Stated Complaint: flank pain, cloudy urine finished ABX Time Seen by Provider: 10/31/24 14:33 Source: patient Mode of arrival: Ambulatory History of Present Illness HPI narrative: 53-year-old gentleman history of hypertension, low testosterone, dyslipidemia that recently passed a kidney stone 3 mm with a recent forniceal rupture with no acute intervention required other than antibiotics and then passing the kidney stone. Patient reports he still having left lower back pain at this time not as intensely as before but he does not still feel right came in to be evaluated again. Patient denies fever, chills, abdominal pain, nausea vomiting, fever, chills, hematuria, penile discharge, testicular pain. Other than what is stated 14 point review of system is negative Related Data Home Medications Medication Instructions Recorded Confirmed cholecalciferol (vitamin D3) 1 tab PO BEDTIME 09/11/20 10/19/24 Saccharomyces boulardii [Daily 1 cap PO DAILY 10/14/22 10/19/24 Probiotic (S. boulardii)] cefdinir 300 mg capsule mg PO 10/19/24 10/19/24 Previous Rx's Medication Instructions Recorded colchicine 0.6 mg capsule 0.6 mg PO .COMPLEX #30 caps 10/09/20 needle (disp) 23 gauge 23 gauge x #12 ea 03/15/21 1 (Monoject Hypodermic [place]) acetaminophen 325 mg capsule 650 mg (2 x 325 mg) PO QID PRN 03/27/21 (Tylenol) pain #30 caps mupirocin 2 % topical ointment 1 applic topical TID #15 grams 05/29/23 allopurinol 300 mg tablet 300 mg PO DAILY #90 tabs 10/06/23 testosterone cypionate 200 mg/mL 100 mg (0.5 mL) IM QWEEK #10 mL 08/23/24 intramuscular oil (Depo-Testosterone) ondansetron 4 mg disintegrating 4 mg PO Q8H PRN nausea and 10/13/24 tablet vomiting #14 tabs oxycodone-acetaminophen 5 mg-325 1 tab PO Q6H PRN pain #14 tabs 10/13/24 mg tablet tamsulosin 0.4 mg capsule 0.4 mg PO DAILY #30 caps 10/13/24 oxycodone-acetaminophen 5 mg-325 1 tab PO Q6H PRN pain #14 tabs 10/14/25 mg tablet (Percocet) hydrocodone 5 mg-acetaminophen 325 1 tab PO Q6H PRN pain #20 tabs 10/31/24 mg tablet tramadol 50 mg tablet 50 mg PO Q8H PRN pain #20 tabs 10/31/24 Allergies Allergy/AdvReac Type Severity Reaction Status Date / Time Penicillins Allergy Intermediate Rash Verified 10/31/24 14:22 Review of Systems Review of Systems ROS Unobtainable: All systems reviewed & are unremarkable except as noted in HPI and below Patient History Medical History (Updated 10/31/24 @ 16:25 by Jose Cronin, DO) Kidney stone on left side Adrenal nodule Ureterolithiasis Polyneuropathy, unspecified Kidney stones (~2020) Obesity (BMI 30.0-34.9) History of testicular cancer History of COVID-19 Alcohol use disorder Impaired fasting glucose Mixed hyperlipidemia Essential hypertension History of sepsis Inguinal hernia Coram syndrome Pneumonia COVID-19 (~2019) Chicken pox Herpes BPH (benign prostatic hyperplasia) Borderline hypertension Low testosterone in male Gout (~2019) Surgical History Hx of bilateral inguinal hernia repair (03/27/21) History of orchiectomy (2003) Anesthesia History of testicular surgery (~2002) Family History Mother Diabetes mellitus Oxygen deficiency History of heart disease Hypertension Hyperlipidemia Mental health problem Social History details: ([place]), solar photovoltaic electrician, grown children household members: significant other and family Smoking Status: Never smoker alcohol intake: current substance use type: former substance user, marijuana and crack/cocaine Smoking Status: Never smoker alcohol intake frequency: holidays/special occasions only Exam Narrative Exam Narrative: GENERAL: [53] year old patient appears stated age. Well-developed patient, in mild distress. HEAD: Atraumatic. Normocephalic. EYES: Pupils equal round and reactive. Extraocular motions intact. No scleral icterus. No injection or drainage. NECK: Trachea midline. Non tender CARDIOVASCULAR: Regular rate and rhythm without murmurs, gallops, or rubs. RESPIRATORY: Clear to auscultation. Breath sounds equal bilaterally. No wheezes, rales, or rhonchi. GASTROINTESTINAL: Abdomen soft, non-tender, nondistended. EXTREMITIES: No edema or joint tenderness. BACK: Nontender without deformity or crepitance. No flank tenderness. NEURO: AOx3. SKIN: No rash or erythema of visible areas Initial Vital Signs Initial Vital Signs: Vital Signs Temperature 97.5 F L 10/31/24 14:17 Pulse Rate 79 10/31/24 14:17 Respiratory Rate 18 10/31/24 14:17 Blood Pressure 167/84 H 10/31/24 14:17 Pulse Oximetry 98 10/31/24 14:17 Oxygen Delivery Method Room Air 10/31/24 14:17 Course Orders Ordered: ED Orders 10/31/24 14:35 CT kidney ureter bladder (KUB) Stat 10/31/24 15:19 Basic Metabolic Panel Stat Complete Blood Count AUTO DIFF Stat Lipase Stat 10/31/24 15:35 Urine Culture Stat Urine Microscopic Stat Discontinued Medications Sodium Chloride (Normal Saline 0.9%) 1,000 mls @ 1,000 mls/hr IV BOLUS ONE Stop: 10/31/24 15:34 Last Infusion: 10/31/24 16:33 Dose: Infused Documented By: Admin: 10/31/24 15:23 Dose: 1,000 mls/hr Documented By: WILMER Ketorolac Tromethamine (Ketorolac 30 Mg/Ml Vial) 15 mg IV NOW ONE Stop: 10/31/24 14:36 Last Admin: 10/31/24 15:24 Dose: 15 mg Documented By: WILMER Ondansetron HCl (Ondansetron 4 Mg/2 Ml Inj) 4 mg IV NOW PRN PRN Reason: Nausea And Vomiting Ondansetron HCl (Ondansetron 4 Mg Odt) 4 mg SL NOW PRN PRN Reason: Nausea And Vomiting Vital Signs Vital signs: Vital Signs - 8 hr 10/31/24 14:17 10/31/24 14:26 10/31/24 14:26 Temperature 97.5 F L Pulse Rate 79 76 Respiratory Rate 18 Blood Pressure 167/84 H 126/71 Pulse Oximetry 98 96 Oxygen Delivery Method Room Air 10/31/24 14:30 10/31/24 15:00 10/31/24 15:28 Temperature Pulse Rate 80 60 69 Respiratory Rate Blood Pressure Pulse Oximetry 97 96 96 Oxygen Delivery Method 10/31/24 15:28 10/31/24 15:30 10/31/24 15:31 Temperature Pulse Rate 76 Respiratory Rate Blood Pressure 133/79 Pulse Oximetry 95 97 Oxygen Delivery Method 10/31/24 15:31 10/31/24 16:00 10/31/24 16:00 Temperature Pulse Rate 80 Respiratory Rate 16 Blood Pressure 146/80 H 133/82 Pulse Oximetry 98 Oxygen Delivery Method 10/31/24 16:30 10/31/24 16:30 Temperature Pulse Rate 77 Respiratory Rate 16 Blood Pressure 123/78 Pulse Oximetry 96 Oxygen Delivery Method MDM - Abdominal Pain Lab Data 10/31/24 15:19 10/31/24 15:19 Labs: Lab Results 10/31/24 10/31/24 Range/Units 15:19 15:35 WBC 8.0 (4.5-11.0) X10^3/uL RBC 5.34 (4.5-5.9) X10^6/uL Hgb 16.1 (13.5-17.5) g/dL Hct 46.5 (41-53) % MCV 87.1 (80-100) fL MCH 30.2 (26-34) PG MCHC 34.7 (30-36) % RDW 12.9 (11.6-14.8) % Plt Count 329 (150-400) X10^3/uL Neut % (Auto) 59.3 (50-75) % Lymph % (Auto) 33.7 (25-40) % [place] % (Auto) 4.6 (3-14) % Eos % (Auto) 1.6 L (2-4) % Baso % (Auto) 0.8 (0-2) % Neut # (Auto) 4800 (6111-4074) /uL Lymph # (Auto) 2700 (3771-9445) /uL [place] # (Auto) 400 (0-900) /uL Eos # (Auto) 100 (0-450) /uL Baso # (Auto) 100 (0-100) /uL Sodium 139 (137-145) mmol/L Potassium 4.1 (3.4-5.1) mmol/L Chloride 102 (98-107) mmol/L Carbon Dioxide 25 (22-32) mmol/L BUN 12 (9-20) mg/dL Creatinine 1.26 H (0.66-1.25) mg/dL Estimated GFR > 60 (>60) mL/min BUN/Creatinine Ratio 9.5 (6-22) Glucose 129 H (70-100) mg/dL Calcium 10.0 (8.4-10.2) mg/dL Lipase 82 (23-300) U/L Urine RBC 0-1/hpf (0-5/HPF) Urine WBC 0-1/hpf (0-5/HPF) Ur Squamous Epith Cells 0-1 /hpf (0-5/HPF) Urine Bacteria Occasional (0-1) (None) Ur Culture Indicated? Cult not indicated Vol Urine Centrifuged 10ml (spun) Point of care testing: Urine Dip Bedside Urine Glucose Negative Bedside Urine Bilirubin - Negative Bedside Urine Ketone - Negative Urine Specific [place] 1.015 Bedside Urine Occult Blood - Negative Bedside Urine pH 6 Bedside Urine Protein - Negative Bedside Urine Urobilinogen - Negative Bedside Urine Nitrite - Negative Bedside Urine Leukocytes +/- [address] scan - abdomen/pelvis: Radiologist's Impression: [address] [id number] [address] Scan Report Signed Patient: Alessandro Madrigal MR#: [id number] : 1970 Acct:[id number] Age/Sex: 53 / M Date of Service: 10/31/24 Loc: ED Accession Number: [id number] Procedure: CT kidney ureter bladder (KUB) Ordering Provider: Jose Cronin D.O. PROCEDURE: CT KIDNEY URETER BLADDER (KUB) INDICATIONS: concern for kidney stones/left flank pain, ruptured ureter TECHNIQUE: Axial sections were acquired from the lung bases to the pubic symphysis. Coronal and sagittal reformats were performed. For radiation dose reduction, the following was used: automated exposure control, adjustment of mA and/or kV according to patient size. COMPARISON: [facility], CT, CT ABDOMEN PELVIS W CON, 10/13/2024, 8:24. [facility], CT, CT ABDOMEN PELVIS W CON, 10/14/2024, 18:34. [facility], CT, CT ABDOMEN PELVIS WITH CONTRAST, 10/15/2024, 17:21. FINDINGS: Image quality: Diagnostic. Lower Chest: No significant findings. URINARY: Right Kidney: No stones or hydronephrosis. Right Ureter: No hydroureter. Left Kidney: No hydronephrosis. There is a tiny 1-2 mm nonobstructing left-sided kidney stone, as on series 2, image 66. Left Ureter: No hydroureter. Mild fat stranding can be seen along the course of the left ureter, yet without significant free fluid. Bladder: Normal wall thickness. No stones. ABDOMEN: Liver: No contour-deforming solid mass. Gallbladder: No radiopaque gallstones or wall thickening. Biliary ducts: No biliary dilation. Pancreas: No ductal dilation. Spleen: Size is within normal limits. Adrenal Glands: There is a right adrenal nodule seen measuring -2 Hounsfield units and measuring 1.7 cm. No left adrenal nodules. Stomach and Bowel: Normal colonic caliber, without significant wall thickening. No dilated loops of small bowel are seen. A normal appendix is noted. Peritoneum: No abnormal intraperitoneal fluid. No free air. Ventral Wall: No hernia. Abdominal Nodes: No enlarged retroperitoneal or mesenteric lymph nodes. Vessels: Aorta and inferior vena cava are normal in size. PELVIS: Pelvic Organs: Unremarkable. Pelvic Nodes: Unremarkable. Miscellaneous: No inguinal hernias are seen. Bones: Unremarkable. IMPRESSION: No current obstructing stone is seen. No hydronephrosis is seen. There is minimal fatty stranding seen adjacent to the left ureter, which may be related to recent, resolved obstruction. However, no significant free fluid is seen to suggest a rupture of the ureter. There is a nonobstructing 1-2 mm stone within the left kidney. There is a right adrenal nodule seen. Based upon the imaging characteristics, this is classified as a benign, lipid rich adrenal adenoma. (No additional imaging follow-up is needed for this nodule.) MDM Narrative Medical decision making narrative: All lab work CT scan vital signs medication list old medical records all reviewed. Patient given lactated Ringer's 1 L bolus and Toradol here IV and Zofran here differential diagnosis includes kidney stone, kidney infection, UTI, pancreatitis, back spasm, sepsis, forniceal rupture. DC home on on tramadol. Return with new or worsening symptoms. Follow up PCP and/or urologist in 1-2 weeks if no better. Discharge Plan Departure Patient Disposition: Home Clinical Impression: Low back pain Qualifiers: Chronicity: acute Back pain laterality: left Sciatica presence: without sciatica Qualified Code(s): M54.50 - Low back pain, unspecified Instructions: DI for Low Back Pain Activity Restrictions/Additional Instructions: Return with new or worsening symptoms. Take your medicines as directed and follow up with PCP and/or urologist in 1-2 weeks if no better. Prescriptions: New tramadol 50 mg tablet 50 mg PO Q8H PRN (Reason: pain) Qty: 20 0RF hydrocodone-acetaminophen 5-325 mg tablet 1 tab PO Q6H PRN (Reason: pain) Qty: 20 0RF No Action mupirocin 2 % ointment 1 applic topical TID Qty: 15 0RF (DME) needle (disp) 23 gauge [Monoject Hypodermic [place]] 23 gauge x 1 needle See Rx Instructions .ROUTE .MEDSUPPLY Qty: 12 2RF Rx Instructions: Use to inject Testosteron IM once weekly allopurinol 300 mg tablet 300 mg PO DAILY Qty: 90 3RF testosterone cypionate [Depo-Testosterone] 200 mg/mL oil 100 mg IM QWEEK Qty: 10 5RF cholecalciferol (vitamin D3) 1 tab PO BEDTIME colchicine 0.6 mg capsule 0.6 mg PO .COMPLEX Qty: 30 2RF Rx Instructions: 0.6 mg PO 1 hour as needed gout; One p.o. Q hour max 6 per day as needed gout attack Saccharomyces boulardii [Daily Probiotic (S. boulardii)] 1 cap PO DAILY cefdinir 300 mg capsule PO tamsulosin 0.4 mg capsule 0.4 mg PO DAILY Qty: 30 0RF Rx Instructions: stop After kidney stone has passed ondansetron 4 mg tablet,disintegrating 4 mg PO Q8H PRN (Reason: nausea and vomiting) Qty: 14 0RF oxycodone-acetaminophen 5-325 mg tablet 1 tab PO Q6H PRN (Reason: pain) Qty: 14 0RF oxycodone-acetaminophen [Percocet] 5-325 mg tablet 1 tab PO Q6H PRN (Reason: pain) Qty: 14 0RF acetaminophen [Tylenol] 325 mg capsule 650 mg PO QID PRN (Reason: pain) Qty: 30 0RF Referrals: Roge Marie MD [Primary Care Provider] - Stand Alone Forms: Patient Portal/API/Survey
[2024-10-31] MEDS: SODIUM CHLORIDE 0.9% 1,000 ML 1000 ML IV (15:23)
[2024-10-31] MEDS: KETOROLAC 30 MG/ML VIAL 15 MG IV (15:24)
[2024-10-31 15:26] LABS: Add Manual Diff / Slide Review NO; Basophils Absolute Auto 100 /uL (0-100); Basophils Percent Auto 0.8 % (0-2); Eosinophils Absolute Auto 100 /uL (0-450); Eosinophils Percent Auto 1.6 % (2-4); Hematocrit 46.5 % (41-53); Hemoglobin 16.1 g/dL (13.5-17.5); Lymphocytes Absolute Auto 2700 /uL (1100-4500); Lymphocytes Percent Auto 33.7 % (25-40); Mean Corpuscular HGB Conc 34.7 % (30-36); Mean Corpuscular Hemoglobin 30.2 PG (26-34); Mean Corpuscular Volume 87.1 fL (80-100); Monocytes Absolute Auto 400 /uL (0-900); Monocytes Percent Auto 4.6 % (3-14); Neutrophils Absolute Auto 4800 /uL (1500-7000); Neutrophils Percent Auto 59.3 % (50-75); Platelet Count 329 X10^3/uL (150-400); Red Blood Cell Count 5.34 X10^6/uL (4.5-5.9); Red Cell Distribution Width 12.9 % (11.6-14.8)
[2024-10-31 15:36] LABS: BUN Creatinine Ratio 9.5 (6-22); Blood Urea Nitrogen 12 mg/dL (9-20); Carbon Dioxide 25 mmol/L (22-32); Chloride 102 mmol/L (98-107); Estimated Glomerular Filt Rate > 60 mL/min (>60); Glucose 129 mg/dL (70-100); HEMOLYSIS 19 (0-50); Lipase 82 U/L (23-300); Potassium 4.1 mmol/L (3.4-5.1); Sodium 139 mmol/L (137-145)
[2024-10-31 16:01] LABS: Bacteria Urine Occasional (0-1); Culture Indicated Urine Cult Not Indicated; RBC Urine 0-1/HPF (0-5/HPF); Squamous Epithelial Cell Urine 0-1 /HPF (0-5/HPF); Urine Volume 10mL (spun); WBC Urine 0-1/HPF (0-5/HPF)
== END 2024-10-31 16:48 | disposition home or self-care (01) ==
PROVIDERS: Emergency Provider Family Medicine; PCP Internal Medicine
DX: M54.50 Low back pain, unspecified (principal); Z87.442 Personal history of urinary calculi
CPT/HCPCS: 36415; 74176; 80048; 81003; 81015; 83690; 85025; 87086; 96361; 96374; 99284; J1885

== ENCOUNTER → 2024-11-13 09:23 | Outpatient (CLI) | payer BC, SELFPAY ==
[2024-11-13 10:53] LABS: Calcium 9.5 mg/dL (8.4-10.2); Phosphorous 2.9 mg/dL (2.5-4.5); Uric Acid 7.3 mg/dL (3.5-8.5)
[2024-11-14 10:36] LABS: Calcium 9.3 mg/dL (8.7-10.2); Parathyroid Hormone, Intact 49 pg/mL (15-65)
== END ==
LOC: LAB 09:24
PROVIDERS: Urology; PCP Internal Medicine; Referring Provider Internal Medicine; Visit Provider Internal Medicine
DX: N20.0 Calculus of kidney (principal)
CPT/HCPCS: 36415; 82310; 83970; 84100; 84550

== ENCOUNTER → 2024-11-17 14:19 | Outpatient (CLI) | payer BC, SELFPAY ==
[2024-12-03 23:39] LABS: Salivary Cortisol #1 0.104 ug/dL (.); Salivary Cortisol #2 <0.010 ug/dL (.)
== END ==
PROVIDERS: PCP Internal Medicine; Referring Provider Internal Medicine; Visit Provider Internal Medicine
DX: E27.0 Other adrenocortical overactivity (principal)
CPT/HCPCS: 82533